=== PATIENT | female | born 1955 | race Caucasian/White ===

== ENCOUNTER → 2020-07-28 15:05 | Outpatient (CLI) | payer MEDICARE, SELFPAY ==
[2020-07-28 15:32] LABS: Basophils # 0.1 K/mm3 (0-0.2); Eosinophils # 0.2 K/mm3 (0.0-0.4); Eosinophils % 2.8 % (0.1-12.0); Hematocrit 49.1 % (37.0-47.0); Hemoglobin 15.6 g/dL (12.2-16.2); Lymphocytes # 2.7 K/mm3 (0.7-4.5); Lymphocytes % 31.5 % (10-50); Mean Corpuscular HGB Conc 31.8 g/dL (31.8-35.4); Mean Corpuscular Volume 97.4 fl (81-99); Mean Platelet Volume 12.8 fl (7.4-10.4); Monocytes # 0.5 K/mm3 (0.1-1.0); Monocytes % 6.2 % (1.7-9.3); Neutrophils # 4.9 K/mm3 (1.8-7.8); Neutrophils % 58.4 % (37.0-80.0); Platelet Count 445 K/mm3 (142-424); Red Blood Count 5.04 M/mm3 (4.20-5.40); Red Cell Distribution Width 14.2 % (11.5-17.5); White Blood Count 8.5 K/mm3 (4.8-10.8)
[2020-07-28 15:48] LABS: Alanine Aminotransferase 20 U/L (12-78); Albumin Level 4.3 g/dl (3.5-5.0); Albumin/Globulin Ratio 1.5 (1.1-1.8); Alkaline Phosphatase 81 U/L (38-126); Aspartate Amino Transferase 31 U/L (14-36); Bilirubin,Total 0.6 mg/dl (0.2-1.3); Blood Urea Nitrogen 17 mg/dl (7-17); Calcium 9.9 mg/dl (8.4-10.2); Carbon Dioxide 30 mmol/L (22.0-30.0); Chloride 102 mmol/L (98-107); Chol/HDL Ratio 3.5 (1-3.5); Cholesterol 172 mg/dl (140-200); Estimated Glomerular Filt Rate 72 ml/min (>60); GFR (African American) 87 ML/MIN (>60); Globulin 2.8 g/dL (1.3-3.2); Glucose 121 mg/dl (74-100); HDL Cholesterol 49 mg/dl (40-60); Sodium 139 mmol/L (136-145); Total Protein,Serum 7.1 g/dl (6.3-8.2); Triglycerides 201 mg/dl (30-150); VLDL Cholesterol 40 mg/dL (0-40)
[2020-07-28 15:59] LABS: Direct LDL Cholesterol 81.24 mg/dL (100-129)
== END ==
PROVIDERS: Visit Provider Family Medicine
DX: I25.10 Atherosclerotic heart disease of native coronary artery without angina pectoris (principal); J44.9 Chronic obstructive pulmonary disease, unspecified; E03.9 Hypothyroidism, unspecified
CPT/HCPCS: 80053; 80061; 84443; 85025

== ENCOUNTER → 2021-05-05 17:34 | Outpatient (CLI) | payer MEDICARE, SELFPAY | PROVIDERS: Visit Provider Family Medicine | DX: N61.1 Abscess of the breast and nipple (principal) | CPT/HCPCS: 87070; 87186; 87205 ==

== ENCOUNTER → 2021-05-18 14:34 | Outpatient (CLI) | payer MEDICARE, SELFPAY ==
--- NOTE | 2021-05-18 14:34 | US_ITS ---
PROCEDURE: MM DIG SCREENING MAMM BI W/CAD Digital Breast Tomosynthesis Included RIGHT BREAST ULTRASOUND COMPLETE CLINICAL INDICATION: screening COMPARISON: MG DIG MAMMO DIAGNOSTIC BARAK from 10/20/2015 MG DIG MAMMO DIAG UNI RIGHT from 04/19/2016 US US BREAST LTD RT from 04/19/2016 MG DIG MAMMO BILAT SCREENING from 01/10/2017 US US BREAST RT COMPLETE from 05/18/2021 TECHNIQUE: Standard CC and MLO images and 3D Tomosynthesis was obtained. R2 CAD reviewed. FINDINGS: There are scattered areas of fibroglandular density Bilateral benign-appearing calcifications are noted. Scattered small nodes are present in the right axilla. A 19 mm oval density is present in the upper aspect of the right breast and may represent an enlarged lymph node as seen on ultrasound.. A new cluster of calcifications are present also in the upper outer aspect of the right breast which are indeterminate. Skin thickening is noted in the right periareolar region. Benign-appearing calcifications are noted in the left breast. Right breast ultrasound: In the 1 o'clock region near the nipple there is a 4 by 3.7 cm area of heterogeneous echogenicity with central decreased echogenicity 1 cm in thickness. This corresponds to patient's palpable abnormality and may be due to residual abscess/inflammatory changes. There is a given history of right breast abscess. 3 cm right axillary node is identified. IMPRESSION: Skin thickening noted in the periareolar region on the right some of which may correspond to the subcutaneous complex area of decreased echogenicity and may represent residual abscess or inflammatory changes. Recommend four-week ultrasound follow-up to confirm resolution. Indeterminate mildly suspicious calcifications upper outer right breast. Stereotactic biopsy suggested. BI-RAD Category: 4 Suspicious Abnormality-Biopsy Considered FOLLOW-UP: BIO Biopsy Recommended Also recommend ultrasound follow-up of the subcutaneous phlegmonous changes in the region of the palpable abnormality. (A letter has been sent to the patient regarding results of the study.) Dictated by: Toby Matt MD 05/27/2021 10:02 Toby Matt MD in [place] 05/27/2021 10:02
== END ==
PROVIDERS: PCP Family Medicine; Visit Provider Surgery
DX: Z12.31 Encounter for screening mammogram for malignant neoplasm of breast (principal); N61.1 Abscess of the breast and nipple
CPT/HCPCS: 76641; 77063; 77067

== ENCOUNTER → 2021-06-08 11:47 | Outpatient (CLI) | payer MEDICARE, SELFPAY ==
--- NOTE | 2021-06-08 12:42 | MM_ITS ---
PROCEDURE: MM STEREOTACTIC LOC RT Mammo clip placement Surgical specimen radiograph CLINICAL INDICATION: breast calcification TECHNIQUE: The patient was given 1 mg of Xanax, Lortab 5 mg, and analgesia and minor sedation. Informed consent time-out procedure was performed. The patient was placed on the stereotactic table and the suspicious calcifications in the right breast was localized in the most appropriate projection. The breast was prepped in the routine manner, with sterile prep and the overlying skin anesthetized. A 3 to 4 mm skin incision was performed and the 9 gauge sorus vacuum-assisted core biopsy needle was advanced to the region of the calcification. Pre- and post fire images were obtained. After adequate positioning relative to the calcifications was ensured, multiple biopsies were obtained in the region of the calcifications specifically. The core biopsies obtained were sent for specimen mammography. After the calcifications were indeed identified on the specimen mammogram, the procedure was terminated. The patient tolerated the procedure well without complications. A tiny titanium nonferromagnetic MicroMark was positioned through the mammotome needle into the biopsy site. Pathology: Focal fibroadenomatoid change with associated microcalcifications. Negative for in situ and invasive malignancy. IMPRESSION: 1. Successful stereotactic vacuum-assisted core biopsy of the breast calcifications. 2. Successful placement of a titanium metal MicroMark. 3. No noted complications. SPECIMEN RADIOGRAPH: The mammographically evident calcifications from the prior study are currently evident within the David dish and within the specimens obtained during mammotome procedure. This is considered an adequate specimen and the procedure was terminated. IMPRESSION: Successful removal of described breast calcifications. BREAST MAMMOGRAM: Compared to the prior study, many of the previous noted calcification have been removed. A small MicroMark clip was inserted into the region of the calcifications in the upper outer right breast. There is evidence of soft tissue changes in the region of the biopsy was soft tissue gas and edema. 4. Adequate placement of the MicroMark clip postbiopsy. 5. Postbiopsy changes within the breast. Dictated by: Toby Matt MD 06/12/2021 12:03 Toby Matt MD in [place] 06/12/2021 12:03
== END ==
PROVIDERS: PCP Family Medicine; Visit Provider Surgery
DX: R92.1 Mammographic calcification found on diagnostic imaging of breast (principal)
CPT/HCPCS: 19081; 76098; 77065; 88305

== ENCOUNTER → 2022-09-20 10:45 | Outpatient (CLI) | payer MEDICARE, SELFPAY ==
[2022-09-20 15:00] LABS: Alanine Aminotransferase 16 U/L (12-78); Albumin Level 4.5 g/dl (3.5-5.0); Albumin/Globulin Ratio 1.6 (1.1-1.8); Alkaline Phosphatase 70 U/L (38-126); Anion Gap 11.7 mEq/L (5-15); Aspartate Amino Transferase 25 U/L (14-36); Bilirubin,Total 0.5 mg/dl (0.2-1.3); Blood Urea Nitrogen 19 mg/dl (7-17); Calcium 9.4 mg/dl (8.4-10.2); Carbon Dioxide 28 mmol/L (22.0-30.0); Chloride 105 mmol/L (98-107); Chol/HDL Ratio 4.4 (1-3.5); Cholesterol 150 mg/dl (140-200); Estimated Glomerular Filt Rate 83 ml/min (>60); GFR (African American) 101 ML/MIN (>60); Globulin 2.9 g/dL (1.3-3.2); Glucose 148 mg/dl (74-100); HDL Cholesterol 34 mg/dl (40-60); Potassium 4.7 mmoL/L (3.5-5.1); Sodium 140 mmol/L (136-145); Total Protein,Serum 7.4 g/dl (6.3-8.2); Triglycerides 161 mg/dl (30-150); VLDL Cholesterol 32 mg/dL (0-40)
[2022-09-20 15:03] LABS: Basophils # 0.1 K/mm3 (0-0.2); Basophils % 0.7 % (0.1-2.0); Eosinophils # 0.2 K/mm3 (0.0-0.4); Eosinophils % 1.9 % (0.1-12.0); Hematocrit 45.7 % (37.0-47.0); Hemoglobin 15.1 g/dL (12.2-16.2); Lymphocytes # 2.9 K/mm3 (0.7-4.5); Lymphocytes % 36.1 % (10-50); Mean Corpuscular Hemoglobin 30.2 pg (27.0-31.2); Mean Corpuscular Volume 91.6 fl (81-99); Mean Platelet Volume 8.2 fl (7.4-10.4); Monocytes # 0.4 K/mm3 (0.1-1.0); Neutrophils # 4.5 K/mm3 (1.8-7.8); Neutrophils % 56.3 % (37.0-80.0); Platelet Count 414 K/mm3 (142-424); Red Cell Distribution Width 14.7 % (11.5-17.5); White Blood Count 7.9 K/mm3 (4.8-10.8)
[2022-09-20 15:30] LABS: Thyroid Stimulating Hormone 2.02 uIU/mL (0.465-4.68)
[2022-09-20 15:33] LABS: Hemoglobin A1C 7.7 % (4.0-6.0)
== END ==
PROVIDERS: PCP Family Medicine; Visit Provider Family Medicine
DX: E11.9 Type 2 diabetes mellitus without complications (principal); I10 Essential (primary) hypertension; G89.29 Other chronic pain; M54.9 Dorsalgia, unspecified; R19.8 Other specified symptoms and signs involving the digestive system and abdomen; E03.9 Hypothyroidism, unspecified; Z79.84 Long term (current) use of oral hypoglycemic drugs
CPT/HCPCS: 80053; 80061; 83036; 84443; 85025

== ENCOUNTER → 2022-10-04 13:12 | Outpatient (CLI) | payer MEDICARE, SELFPAY ==
--- NOTE | 2022-10-04 13:12 | CT_ITS ---
FINAL REPORT TECHNIQUE: Axial imaging of the chest was obtained without contrast. Reformatted images were also obtained and reviewed.This study was performed with techniques to keep radiation doses as low as reasonably achievable, (ALARA). Individualized dose reduction technique using automated exposure control or adjustment of mA and/or kV according to the patient's size were employed. CLINICAL HISTORY: chest pain / tobacco FINDINGS: There are dense coronary artery calcifications. There is no axillary adenopathy. There is no hilar or mediastinal mass or adenopathy. Heart size is normal. There is no pericardial or pleural effusion. Calcified granuloma is seen in the lingula. No suspicious infiltrate or nodule is identified on lung window images. IMPRESSION: No acute process. Reviewed, Interpreted and Dictated by Justino Patino MD Transcribed by Lesley Maciel Authenticated and [facility]
--- NOTE | 2022-10-04 13:12 | CT_ITS ---
FINAL REPORT TECHNIQUE: Axial CT images of the abdomen were obtained without contrast. Coronal reformatted images were also obtained.This study was performed with techniques to keep radiation doses as low as reasonably achievable (ALARA). Individualized dose reduction techniques using automated exposure control or adjustment of mA and/or kV according to the patient''s size were employed. CLINICAL HISTORY: left upper quadrant pain FINDINGS: The liver has an unremarkable appearance, without evidence of mass. The gallbladder appears normal without evidence of gallstones. There is no evidence of biliary ductal dilatation. The pancreas appears normal. The spleen size is within normal limits. There is no evidence of renal stone or hydronephrosis. There is a left adrenal nodule measuring 1.8 cm with a mean attenuation value of 12 Hounsfield units which is indeterminate, favor adenoma. There is no evidence of adenopathy. No abnormal fluid collection is seen. No localized inflammatory processes identified. IMPRESSION: 1.8 cm left adrenal nodule, favor adenoma. This could be further evaluated with adrenal mass protocol CT if clinically indicated. Reviewed, Interpreted and Dictated by Justino Patino MD Transcribed by Lesley Maciel Authenticated and [facility]
== END ==
PROVIDERS: PCP Family Medicine; Visit Provider Family Medicine
DX: R10.12 Left upper quadrant pain (principal); R07.9 Chest pain, unspecified
CPT/HCPCS: 71250; 74150

== ENCOUNTER → 2023-05-23 13:51 | Outpatient (CLI) | payer MEDICARE, SELFPAY ==
[2023-05-23 18:28] LABS: Basophils % 0.4 % (0.1-2.0); Eosinophils # 0.2 K/mm3 (0.0-0.4); Eosinophils % 1.9 % (0.1-12.0); Hematocrit 55.7 % (37.0-47.0); Hemoglobin 17.2 g/dL (12.2-16.2); Lymphocytes # 2.3 K/mm3 (0.7-4.5); Lymphocytes % 28.1 % (10-50); Mean Corpuscular Volume 93.5 fl (81-99); Monocytes # 0.5 K/mm3 (0.1-1.0); Monocytes % 5.7 % (1.7-9.3); Neutrophils # 5.1 K/mm3 (1.8-7.8); Neutrophils % 63.9 % (37.0-80.0); Platelet Count 410 K/mm3 (142-424); Red Blood Count 5.95 M/mm3 (4.20-5.40)
[2023-05-23 18:36] LABS: Alanine Aminotransferase 22 U/L (12-78); Albumin Level 4.9 g/dl (3.5-5.0); Albumin/Globulin Ratio 1.3 (1.1-1.8); Alkaline Phosphatase 93 U/L (38-126); Anion Gap 13.1 mEq/L (5-15); Aspartate Amino Transferase 28 U/L (14-36); Bilirubin,Total 0.5 mg/dl (0.2-1.3); Blood Urea Nitrogen 10 mg/dl (7-17); Calcium 10.4 mg/dl (8.4-10.2); Carbon Dioxide 34 mmol/L (22.0-30.0); Chloride 100 mmol/L (98-107); Chol/HDL Ratio 3.1 (1-3.5); Cholesterol 162 mg/dl (140-200); Estimated Glomerular Filt Rate 83 ml/min (>60); GFR (African American) 100 ML/MIN (>60); Globulin 3.8 g/dL (1.3-3.2); Glucose 133 mg/dl (74-100); HDL Cholesterol 52 mg/dl (40-60); Potassium 4.1 mmoL/L (3.5-5.1); Sodium 143 mmol/L (136-145); Total Protein,Serum 8.7 g/dl (6.3-8.2); Triglycerides 180 mg/dl (30-150); VLDL Cholesterol 36 mg/dL (0-40)
[2023-05-23 18:47] LABS: Direct LDL Cholesterol 69.85 mg/dL (100-129)
[2023-05-23 19:07] LABS: Thyroid Stimulating Hormone 3.55 uIU/mL (0.465-4.68)
== END ==
PROVIDERS: PCP Family Medicine; Visit Provider Family Medicine
DX: R10.9 Unspecified abdominal pain (principal); E03.9 Hypothyroidism, unspecified; M54.9 Dorsalgia, unspecified
CPT/HCPCS: 80053; 80061; 84443; 85025

== ENCOUNTER → 2023-06-20 11:05 | Outpatient (CLI) | payer MEDICARE, SELFPAY ==
--- NOTE | 2023-06-20 11:12 | MR_ITS ---
FINAL REPORT CLINICAL HISTORY: Low back pain/abnormal XR. BILATERAL LEG PAIN COMPARISON: None FINDINGS: Multiplanar MR imaging of the lumbar spine was performed without contrast. On the sagittal T2-weighted images, disc degeneration is seen throughout. There is mild anterolisthesis of L4 on L5. There is no evidence of fracture. There are several vertebral body hemangiomas present. The conus has an unremarkable appearance. T11-12: An annular bulge is present with osteophytes and facet osteoarthropathy. There is moderate right and mild left neural foraminal narrowing. T12-L1: An annular bulge is present with osteophytes and facet osteoarthropathy. There is mild right neural foraminal narrowing. L1-2: An annular bulge is present with osteophytes and facet osteoarthropathy. There is mild right and moderate left neural foraminal narrowing. L2-3: An annular bulge is present with osteophytes and facet osteoarthropathy. There is a left foraminal disc protrusion producing left L3 nerve root impingement and moderate bilateral neural foraminal narrowing. There is moderate canal stenosis with an AP canal diameter of 5 mm. L3-4: An annular bulge is present with osteophytes and facet osteoarthropathy. There is a left foraminal disc protrusion with mild right and moderate left neural foraminal narrowing. There is mild canal stenosis with an AP canal diameter of 7 mm. L4-5: An annular bulge is present with osteophytes and facet osteoarthropathy. There is a left posterolateral disc protrusion with mild right and severe left neural foraminal narrowing. There is left L4 nerve root impingement and mild canal stenosis with an AP canal diameter of 8 mm. L5-S1: An annular bulge is present with osteophytes and facet osteoarthropathy. There is severe right and mild left neural foraminal narrowing, with a right paracentral disc protrusion which produces right S1 nerve root impingement and right lateral recess stenosis. IMPRESSION: Multilevel degenerative disc disease, with moderate canal stenosis at the L2-3 level and multilevel neural foraminal narrowing. Reviewed, Interpreted and Dictated by Ortega Forbes III, MD Transcribed by Shaneka Frederick Authenticated and . [facility]
== END ==
LOC: RAD 11:05
PROVIDERS: PCP Family Medicine; Visit Provider Family Medicine
DX: M54.9 Dorsalgia, unspecified (principal); M54.50 Low back pain, unspecified
CPT/HCPCS: 72148; 76376

== ENCOUNTER 2023-11-28 18:23 | Outpatient (CLI) | payer MEDICARE, SELFPAY ==
[2023-11-28 18:25] LABS: Basophils # 0.1 K/mm3 (0-0.2); Basophils % 0.6 % (0.1-2.0); Eosinophils # 0.2 K/mm3 (0.0-0.4); Eosinophils % 1.9 % (0.1-12.0); Hematocrit 45.7 % (37.0-47.0); Hemoglobin 14.3 g/dL (12.2-16.2); Lymphocytes # 1.9 K/mm3 (0.7-4.5); Lymphocytes % 23.3 % (10-50); Mean Corpuscular HGB Conc 31.3 g/dL (31.8-35.4); Mean Corpuscular Hemoglobin 30.5 pg (27.0-31.2); Mean Corpuscular Volume 97.4 fl (81-99); Mean Platelet Volume 8.7 fl (7.4-10.4); Monocytes # 0.5 K/mm3 (0.1-1.0); Monocytes % 6.6 % (1.7-9.3); Neutrophils # 5.5 K/mm3 (1.8-7.8); Neutrophils % 67.7 % (37.0-80.0); Platelet Count 418 K/mm3 (142-424); White Blood Count 8.1 K/mm3 (4.8-10.8)
[2023-11-28 18:27] LABS: Alanine Aminotransferase 17 U/L (12-78); Albumin Level 3.9 g/dl (3.5-5.0); Albumin/Globulin Ratio 1.4 (1.1-1.8); Alkaline Phosphatase 75 U/L (38-126); Anion Gap 9.5 mEq/L (5-15); Aspartate Amino Transferase 33 U/L (14-36); Bilirubin,Total 0.5 mg/dl (0.2-1.3); Blood Urea Nitrogen 18 mg/dl (7-17); Calcium 9.8 mg/dl (8.4-10.2); Carbon Dioxide 30 mmol/L (22.0-30.0); Chloride 104 mmol/L (98-107); Cholesterol 140 mg/dl (140-200); Estimated Glomerular Filt Rate 71 ml/min (>60); GFR (African American) 86 ML/MIN (>60); Globulin 2.7 g/dL (1.3-3.2); Glucose 150 mg/dl (74-100); HDL Cholesterol 46 mg/dl (40-60); Potassium 4.5 mmoL/L (3.5-5.1); Sodium 139 mmol/L (136-145); Total Protein,Serum 6.6 g/dl (6.3-8.2); Triglycerides 101 mg/dl (30-150); VLDL Cholesterol 20 mg/dL (0-40)
[2023-11-28 18:38] LABS: Direct LDL Cholesterol 73.53 mg/dL (100-129)
[2023-11-28 18:57] LABS: Thyroid Stimulating Hormone 3.73 uIU/mL (0.465-4.68)
[2023-11-28 19:16] LABS: Vitamin B12 679 pg/mL (239-931)
[2023-11-28 19:19] LABS: 25-OH Vitamin D, Total 33.6 ng/mL (30-100)
[2023-11-28 19:53] LABS: Hemoglobin A1C 7.1 % (4.0-6.0)
== END 2023-11-28 23:59 ==
LOC: LAB.DROPOF 18:24
PROVIDERS: PCP Family Medicine; Visit Provider Family Medicine
DX: J44.9 Chronic obstructive pulmonary disease, unspecified (principal); E11.9 Type 2 diabetes mellitus without complications; E07.9 Disorder of thyroid, unspecified; E55.9 Vitamin D deficiency, unspecified; E78.5 Hyperlipidemia, unspecified; Z79.84 Long term (current) use of oral hypoglycemic drugs
CPT/HCPCS: 80053; 80061; 82306; 82607; 83036; 84436; 84443; 85025

== ENCOUNTER 2024-06-18 10:04 | Outpatient (CLI) | payer MEDICARE, SELFPAY ==
[2024-06-18 20:07] LABS: Alanine Aminotransferase 14 U/L (12-78); Albumin Level 3.8 g/dl (3.5-5.0); Albumin/Globulin Ratio 1.4 (1.1-1.8); Alkaline Phosphatase 61 U/L (38-126); Anion Gap 5.6 mEq/L (5-15); Aspartate Amino Transferase 23 U/L (14-36); Bilirubin,Total 0.6 mg/dl (0.2-1.3); Blood Urea Nitrogen 10 mg/dl (7-17); Calcium 9.8 mg/dl (8.4-10.2); Carbon Dioxide 34 mmol/L (22.0-30.0); Chloride 106 mmol/L (98-107); Cholesterol 127 mg/dl (140-200); Estimated Glomerular Filt Rate 83 ml/min (>60); GFR (African American) 100 ML/MIN (>60); Globulin 2.7 g/dL (1.3-3.2); Glucose 117 mg/dl (74-100); HDL Cholesterol 42 mg/dl (40-60); Potassium 4.6 mmoL/L (3.5-5.1); Sodium 141 mmol/L (136-145); Total Protein,Serum 6.5 g/dl (6.3-8.2); Triglycerides 93 mg/dl (30-150); VLDL Cholesterol 19 mg/dL (0-40)
[2024-06-18 20:30] LABS: Direct LDL Cholesterol 61.89 mg/dL (100-129)
[2024-06-18 20:37] LABS: Thyroid Stimulating Hormone 2.31 uIU/mL (0.465-4.68)
[2024-06-18 21:14] LABS: Hemoglobin A1C 6.5 % (4.0-6.0)
== END 2024-06-18 23:59 | disposition home or self-care (01) ==
LOC: LAB.DROPOF 06-19 10:05
PROVIDERS: PCP Family Medicine; Visit Provider Family Medicine
DX: I25.10 Atherosclerotic heart disease of native coronary artery without angina pectoris (principal); I10 Essential (primary) hypertension; E03.9 Hypothyroidism, unspecified; E11.9 Type 2 diabetes mellitus without complications; Z79.84 Long term (current) use of oral hypoglycemic drugs; F17.200 Nicotine dependence, unspecified, uncomplicated
CPT/HCPCS: 80053; 80061; 83036; 84443

== ENCOUNTER 2025-02-25 11:48 | Outpatient (CLI) | payer MEDICARE, SELFPAY ==
[2025-02-25 19:17] LABS: Basophils % 0.3 % (0.1-2.0); Eosinophils # 0.1 Kmm3 (0.0-0.4); Eosinophils % 1.8 % (0.1-12.0); Hematocrit 43.2 % (37.0-47.0); Hemoglobin 13.9 g/dL (12.2-16.2); Immature Granulocytes # 0.02 10^3uL; Immature Granulocytes % 0.3 %; Lymphocytes # 2.9 K/mm3 (0.7-4.5); Lymphocytes % 37.5 % (10-50); Mean Corpuscular HGB Conc 32.2 g/dL (31.8-35.4); Mean Corpuscular Hemoglobin 30.5 pg (27.0-31.2); Mean Corpuscular Volume 94.7 fl (81-99); Mean Platelet Volume 9.4 fl (7.4-10.4); Monocytes # 0.5 K/mm3 (0.1-1.0); Monocytes % 6.5 % (1.7-9.3); Neutrophils # 4.2 K/mm3 (1.8-7.8); Neutrophils % 53.6 % (37.0-80.0); Nucleated Red Blood Cells # 0 10^3/uL; Nucleated Red Blood Cells % 0 %; Platelet Count 379 K/mm3 (142-424); Red Blood Count 4.56 M/mm3 (4.20-5.40); Red Cell Distribution Width 14.7 % (11.5-17.5); Red Cell Distribution Width-SD 51.8 fL; White Blood Count 7.8 K/mm3 (4.8-10.8)
[2025-02-25 19:34] LABS: Microalbumin/Creatinine Ratio 14.5
[2025-02-25 19:44] LABS: Albumin Level 4.3 g/dl (3.5-5.0); Chloride 100 mmol/L (98-107); Potassium 4.3 mmoL/L (3.5-5.1); Sodium 139 mmol/L (136-145)
[2025-02-25 19:46] LABS: Blood Urea Nitrogen 27 mg/dl (7-17); Estimated Glomerular Filt Rate 62 ml/min (>60); GFR (African American) 75 ML/MIN (>60)
[2025-02-25 19:47] LABS: Alanine Aminotransferase 16 U/L (12-78); Albumin/Globulin Ratio 1.5 (1.1-1.8); Alkaline Phosphatase 62 U/L (38-126); Anion Gap 12.3 mEq/L (5-15); Aspartate Amino Transferase 22 U/L (14-36); Bilirubin,Total 0.3 mg/dl (0.2-1.3); Calcium 9.9 mg/dl (8.4-10.2); Carbon Dioxide 31 mmol/L (22.0-30.0); Cholesterol 133 mg/dl (140-200); Globulin 2.8 g/dL (1.3-3.2); Glucose 116 mg/dl (74-100); HDL Cholesterol 44 mg/dl (40-60); Total Protein,Serum 7.1 g/dl (6.3-8.2); Triglycerides 146 mg/dl (30-150); VLDL Cholesterol 29 mg/dL (0-40)
[2025-02-25 19:48] LABS: Creatinine,Urine Random 61 mg/dL (Not Estab.)
[2025-02-25 19:58] LABS: Direct LDL Cholesterol 48.67 mg/dL (100-129)
[2025-02-25 20:14] LABS: Intact Parathyroid Hormone 18.5 pg/mL (7.5-53.5)
[2025-02-25 20:18] LABS: Thyroid Stimulating Hormone 2.13 uIU/mL (0.465-4.68)
[2025-02-25 20:28] LABS: HIV Combo NEGATIVE (Negative)
[2025-02-25 20:48] LABS: Hepatitis C Ab Qual. W/ RFX NEGATIVE (Negative)
[2025-02-25 21:03] LABS: Hemoglobin A1C 7.8 % (4.0-6.0)
--- OUTSIDE RECORDS SUMMARY | 2025-02-27 11:50 | XMS_ITS | Continuity of Care Document ---
Author Organization [place] - [facility] - [place] & [place], [facility] Address [address] [place] [address] Care Team Providers Care Air Cargo Specialist Name Role Phone SHANTHI VERA Primary Care Provider Assessment Encounter Date Assessment Date Assessment LastModified by Organization Details LastModified Time 01/14/2025 01/14/2025 Doing very well. No chest pain pressure or tightness. No shortness of breath. Blood pressure and heart rate have been under good control. She took her blood pressure medicines about a half an hour ago. Normal blood pressure at home. We will continue Plavix. Continue the current medical therapy. She is on lisinopril and metoprolol. Maximal medical therapy. We will see her back in 6 months. Monitor the cardiac symptoms. Meds and chart reviewed in full today. EKG shows normal sinus rhythm with poor R-wave progression but no ST or T-wave changes Patient Education was printed, I have reviewed the Past Medical, Family, and Social Histories along with ROS and all orders in today's record, and have noted any changes. Medications, charts and records reviewed in full today. PLAN: Continue lisinopril and metoprolol. Maximal medical therapy Continue Plavix Continue Lasix at current dose Follow-up in Cardiology Clinic in 6 months Blood work as per primary care Monitor blood pressure and heart rate Continue other current medications. Continue aggressive risk factor modification. Recommend LDL less than 70 Encouraged regular exercise and activity. EKG: today shows normal sinus rhythm poor R-wave progression but no ST or T-wave changes LAST ECHO: 01/10/2023 EJECTION FRACTION 70-75%. MILD LVH. OTHERWISE, NORMAL ECHO LAST ISCHEMIC EVAL: 05/06/14 ISCHEMIA OF A MODERATE PORTION OF THE ANTERIOR AND APICAL [place] ON MYOCARDIAL PERFUSION. ABNORMAL EXERCISE EKG. MODERATE REDUCTION FUNCTIONAL CAPACITY. NORMAL LV SF. LAST HEART CATH: 12/19/2017 [facility]. LVEDP 10. SEVERE TWO-VESSEL [place] CORONARY ARTERY DISEASE SUBTOTAL OCCLUSION AND FRESH RUPTURED PLAQUE IN THE MID / DISTAL RCA WELL SEVERE IN-STENT STENOSIS OF THE MID LAD. MILD DIFFUSE CORONARY CALCIFICATION. SUCCESSFUL ANGIOPLASTY OF THE OSTIAL 1ST DIAGONAL BRANCH OF THE LAD. SUCCESSFUL ANGIOPLASTY AND STENTING OF THE PROXIMAL / MID AND MID LEFT ANTERIOR DESCENDING AND THE MID AND MID DISTAL LARGE AND DOMINANT RCA. LAST LDL: 01/10/2023- 153 PAST [facility]: 02/23/2016 ARCENIO Foreman LPN, I AM SCRIBING FOR, AND IN THE OFFICE/PRESENC E OF, KERRI RANGEL MD. KERRI Foreman M.D. PERFORMED THE SERVICES DESCRIBED IN THIS DOCUMENTATION, SCRIBED BY ARCENIO CHAUDHRY LPN IN MY PRESENCE, AND IT IS BOTH ACCURATE AND COMPLETE. [email or web address] Not available 01/14/2025 09:54:59 Plan of Treatment Reminders Order Date Submit Date Provider Last Modified By Organization Details Last Modified Time Details Appointments OV EST 30 2024 09:00A Sheyla Rangel MD Not available Not available Not available Lab None recorded. Referral None recorded. Procedures None recorded. Surgeries None recorded. Imaging electroca rdiogram 2024 025 mango [facility], [address] [place] [address] [address], [place], [address], 01/14/2025 09:55:15 Medication Orders None recorded. Patient TargetsNo targets recorded. Patient InstructionsNo instructions recorded. Reason for Referral None Reported. Results Created Date Observation Date Name Description Value Unit Range Abnormal Flag Note LastModifiedBy Organization Detail LastModifiedTime 01/15/20 25 kevin decker am No observ ation record ed. FACUNDO Norman [address], [place], [address], 01/14/2025 08:55:11 01/15/20 25 01/14/2025 elect shirley decker am No observ ation record ed. [email or web address] Not Available 2024 12:18:26 Result Notes None recorded. Problems Name Problem SNOMED Code Status Onset Date Resolution Date Notes Provider Name and Address Organization Details Recorded Time Transient cerebral ischemia 083102696 Active 2023 Kerri Rangel MD [facility], [place], [address], [place] [facility] [place] 4 14:15:25 Hyperlipidemia 97386390 Active 2022 Kerri Rangel MD [facility],[address], [place], [address], [place] [facility] [place] & [place] 3 10:07:54 Near syncope 641589221 Active 2022 Kerri Rangel MD [facility],[address], [place], [address], [place] [facility] [place] & [place] 3 10:07:58 Coronary arterioscleros is 82614561 Active 2022 Kerri Rangel MD [address] [place] [address],[address], [place], [address], [place] [facility] [place] & [place] 3 10:08:03 Essential hypertension 41798908 Active 2022 Kerri Rangel MD [facility],[address], [place], [address], [place] [facility] [place] & [place] 3 10:08:06 Diastolic dysfunction 3775347 Active 2022 Kerri Rangel MD [address] [place] [address],[address], [place], [address], [place] [facility] [place] 3 10:08:11 Type 2 diabetes mellitus without complication 109210444 Active 2022 Kerri Rangel MD [address] [place] [address],[address], [place], [address], [place] - [facility] [place] & [place] 13:23:44 Problem Notes None recorded. Procedures Surgical History Date Name Laterality Status Provider Name and Address Organization Details Recorded Time 12/20/19 18 Cardiac Catheterization completed Syl Menendez [place] - [facility] - [place] & [place] 02/17/2023 15:54:24 02/23/20 16 Cardiac Catheterization completed Syl BAHENA - [facility] - [place] 02/17/2023 16:00:58 08/29/19 15 Hip Surgery completed Elvia Aldana SHRUT[place] - [facility] - [place] 12/27/2022 11:15:58 05/27/20 14 Cardiac Catheterization completed Syl BAHENA - [facility] - [place] & [place] 02/17/2023 16:01:50 02/24/20 10 Cardiac Catheterization completed Syl BAHENA - [facility] - [place] & [place] 02/17/2023 16:02:31 01/15/20 09 Cardiac Catheterization completed Syl Pinedaes [place] - [facility] - [place] & [place] 02/17/2023 16:03:12 Imaging Results None recorded. Procedure Notes None recorded. Medical Equipment None Reported. Allergies No known drug allergies Medications Name Sig Start Date Stop Date Status Note LastModified by Organization Details LastModified Time atorvastati n 40 mg tablet TAKE 1 TABLET BY MOUTH ONCE DAILY active Not Available Not Available No t Available metformin 500 mg tablet TAKE 1 TABLET BY MOUTH TWICE DAILY active Not Available Not Available No t Available potassium chloride ER 10 mEq capsule,ext ended release TAKE 1 CAPSULE BY MOUTH ONCE DAILY active Not Available Not Available No t Available albuterol sulfate 2.5 mg/3 mL (0.083 %) solution for nebulizatio n INHALE THREE (3) ML FOUR (4) TIMES A DAY BY NEBULIZAT ION ROUTE NEEDED active Not Available Not Available No t Available azithromyci n 250 mg tablet TAKE TWO (2) TABLETS (500 MG) BY ORAL ROUTE ONCE DAILY FOR ONE (1) DAY THEN ONE (1) TABLET (250 MG) BY ORAL ROUTE ONCE DAILY FOR FOUR (4) DAYS 12/27 completed Not Available Not Available Not Available benzonatate 200 mg capsule TAKE 1 CAPSULE BY MOUTH THREE TIMES DAILY NEEDED FOR COUGH 02/26 completed Not Available Not Available Not Available metoprolol succinate ER 50 mg tablet,exte nded release 24 hr TAKE 1 TABLET BY MOUTH ONCE DAILY active Not Available Not Available No t Available prednisone 20 mg tablet TAKE THREE (3) TABLETS BY MOUTH FOR THREE (3) DAYS, TWO (2) TABLETS FOR THREE (3) DAYS THEN ONE (1) TABLET FOR THREE (3) DAYS 02/21 completed Not Available Not Available Not Available promethazin e 6.25 mg-codeine 10 mg/5 mL syrup TAKE FIVE (5) ML FOUR (4) TIMES A DAY BY ORAL ROUTE NEEDED FOR 7 DAYS. 10/17 completed Not Available Not Available Not Available clopidogrel 75 mg tablet TAKE 1 TABLET BY MOUTH ONCE DAILY active Not Available Not Available No t Available tramadol 50 mg tablet TAKE 1 TABLET BY MOUTH THREE TIMES DAILY NEEDED FOR PAIN 07/04 completed Not Available Not Available Not Available calcium 600 mg (as calcium carbonate 1,500 mg) tablet TAKE 1 TABLET BY MOUTH ONCE DAILY FOR 14 DAYS active Not Available Not Available No t Available pravastatin 80 mg tablet TAKE 1 TABLET BY MOUTH ONCE DAILY 07/09 completed Not Available Not Available Not Available levothyroxi ne 50 mcg tablet TAKE 1 TABLET BY MOUTH ONCE DAILY active Not Available Not Available No t Available pantoprazol e 40 mg tablet,autumn yed release TAKE 1 TABLET BY MOUTH ONCE DAILY active Not Available Not Available No t Available gabapentin 300 mg capsule TAKE 1 CAPSULE BY MOUTH THREE TIMES DAILY NEEDED FOR PAIN active Not Available Not Available No t Available furosemide 20 mg tablet TAKE 1 TABLET BY MOUTH TWICE DAILY NEEDED FOR EDEMA active Not Available Not Available No t Available methylpredn isolone 4 mg tablets in a dose pack TAKE BY MOUTH DIRECTED ON INSIDE OF PACKAGE 02/26 completed Not Available Not Available Not Available albuterol sulfate HFA 90 mcg/actuati on aerosol inhaler INHALE 2 PUFFS BY MOUTH EVERY 4 TO 6 HOURS NEEDED FOR SHORTNESS OF BREATH FOR WHEEZING active Not Available Not Available No t Available lisinopril 40 mg tablet TAKE 1 TABLET BY MOUTH ONCE DAILY active Not Available Not Available No t Available Mucinex 600 mg tablet, extended release TAKE ONE (1) TABLET EVERY 12 HOURS BY ORAL ROUTE FOR 7 DAYS. 07/04 completed Not Available Not Available Not Available duloxetine 30 mg capsule,del ayed release TAKE 1 CAPSULE BY MOUTH ONCE DAILY active Not Available Not Available No t Available metformin 02/21 completed Not Available Not Available Not Available Vitals Date Recorded Body height Body mass index (BMI) Body weight Oxygen saturation Oxygen saturation in Arterial blood by Pulse oximetry Heart rate Systolic blood pressure Diastolic blood pressure Provider Name and Address Organization Details Last Updated DateTime 5 152.4 cm 26.4 kg/m2 98183.4 1 g 90 % 90 % 70 /min 142 mm[Hg] 78 mm[Hg] Yue Elaine [facility] & [place] 5 08:46:49 Social History Question Answer Notes LastModified by [place] Details LastModified Time Tobacco Smoking Status Current Every Day Smoker Elvia Aldana [facility], [facility] & [place] 12/27/2022 11:15:58 What Is Your Level Of Caffeine Consumption? Occasional [email or web address] Information not available 07/09/2024 What Type Of Diet Are You Following? REGULAR [email or web address] Information not available 07/09/2024 What Was The Date Of Your Most Recent Tobacco Screening? 12/27/2022 [email or web address] Information not available 12/27/2022 Are You Passively Exposed To Smoke? No [email or web address] Information not available 12/27/2022 How Much Tobacco Do You Smoke? 1 PPD [email or web address] Information not available 12/27/2022 How Many Years Have You Smoked Tobacco? 30 [email or web address] Information not available 12/27/2022 Sex: Female Functional Status Question Answer Note LastModified by Plum Baby[employer]at ion Details LastModified Time Do you use any illicit or recreational drugs? No [email or web address] Information not available 12/27/2022 Do you or have you ever used any other forms of tobacco or nicotine? No [email or web address] Information not available 07/09/2024 What is your level of alcohol consumption? None [email or web address] Information not available 12/27/2022 What is your exercise level? Occasional [email or web address] Information not available 12/27/2022 Mental Status None recorded. Family History Nothing Reported. Medical History Condition Response Diabetes Y Thyroid Disease Y Low Blood Pressure Y Hypertension Y Dizziness or Fainting Y High Cholesterol Y Gynecological HistoryNo gynecological history recorded. Obstetrics History GPAL:G 0 P 0 0 0 0 Past Encounters Encounter ID Performer Location Encounter Start Date Encounter Closed Date Diagnosis/Indication Diagnosis SNOMED-CT Code Diagnosis ICD10 Code Diagnosis Note [id number] Kerri Rangel MD [address] [place] [address] 01/14/2025 08:36:03 01/14/2025 09:07:52 Essential hypertension 77231542 I10 Coronary arteriosclerosis 18778048 I25.10 Diastolic dysfunction 35 54533 I51.9 Hyperlipidemia 21392981 E78.5 Type 2 page betes mellitus without complication 198634815 E11.9 Transient cerebral ischemia 552616159 G45.9 no further episodes Health Concerns Section Related Observation LastModified by Organization Detai ls LastModified Time None Recorded Concern Status LastModified by Organization Details LastModified Time None Recorded Payers Encounter Date Sequence Insurance Name Policy Number Policy Joy Covered Member ID Joy Member ID Guarantor Name 01/14/2025 1 [place]MEDICARE REPLACEMENT HMO) [id number] Eun Greer [id number] Eun Greer Notes Date Note Type Note Provider Name and Address Organization Details Recorded Time 01/14/2025 text/html doing well. Here for six-month follow-up. She did not get her echocardiogram and carotid but has not had any further symptoms. No chest pain pressure or tightness. No shortness of breath. No further TIA like symptoms. Kerri Rangel MD [address] [place] [address],[address], [place], [address], [facility] - [place] - [place] & [place] 01/14/2025 09:55:19 OBGyn Episode No OBEpisode recorded.
--- OUTSIDE RECORDS SUMMARY | 2025-02-27 11:50 | XMS_ITS | Data Portability ---
Author Organization [facility] Address [address] [place] [address] Assessment Encounter Date Assessment Date Assessment LastModified by Organization Details LastModified Time 10/26/2017 10/26/2017 Patient has been to urgent care twice. Refractory bronchitis Rx Omnicef 300 mg 1 po bid x 10 days Depo Medrol 120 mg IM Stents x 6 Referral to No nitroglycerin use s/p total hip replacement [email or web address] Not available 10/26/2017 13:51:47 12/17/2024 12/17/2024 Will call with lab results when available. Call office with questions or concerns. f/u 2 weeks for Medicare AWE Not available 12/17/2024 16:56:32 Plan of Treatment Reminders Order Date Submit Date Provider Last Modified By Organization Details Last Modified Time Details Appointments None recorded. Lab HbA1c (hemoglobin A1c), blood 2024 025 [email or web address] [facility], [address] [place], [address], 5 16:55:22 TSH + free T4, serum 2024 025 FAC[place]DO [facility], [address], [place] F, [place], [address], 5 12:40:38 CMP, serum or plasma 2024 025 [place] [facility], [address], [place], [place], [address], 5 12:40:39 CBC w/ auto diff 2024 025 [place] [facility], [address], [place] F, [place], [address], 5 12:40:38 cobalamin and folate panel, serum 2024 025 [place] [facility], [address], [place] F, [place], [address], 5 12:40:40 vitamin D, 25-hydroxy, total, serum 2024 025 [place] [facility], [address], [place] F, [place], [address], 5 12:40:40 iron + TIBC + ferritin, serum 2024 025 [place] [facility], [address], [place], [place], [address], 5 12:40:37 rapid flu (A+B) [address], [address] [place], [address], 3 11:53:37 rapid SARS CoV + SARS CoV 2 Ag, QL IA, respiratory specimen [address], [address] [place], [address], 3 11:53:37 HbA1c (hemoglobin A1c), blood [address], [address] [place], [address], 3 14:09:04 glucose, fingerstick , blood 2022 023 [facility], [address] [place], [place] [address] [place], [address], 3 14:09:04 Referral cardiologis t referral - please schedule as soon as possible 2017 018 [email or web address] Jose Luis Saleem MD, [address] [place] [address] , [address], [address], 8 09:58:48 Procedures nebulizer treatment (PROC) 2022 023 Not available 3 15:14:44 Surgeries None recorded. Imaging XR, chest, 2 view 2017 018 [facility], [address] [place] [address] [address] [place], [address], 8 11:40:37 electrocard iogram 2017 018 [facility], [address] [place] [address] [address] [place], [address], 8 12:29:01 Medication Orders Solu-Medrol (PF) 125 mg/2 mL solution for injection 2022 023 [email or web address] Not available 5 16:48:39 ceftriaxone 1 gram solution for injection 2022 023 [email or web address] Not available 5 16:49:15 albuterol sulfate HFA 90 mcg/actuati on aerosol inhaler 2022 023 [facility], [address] [place] [address], [place], [address], 3 15:20:25 promethazin e 6.25 mg-codeine 10 mg/5 mL syrup [email or web address] [facility], [address] [place] [address], [place], [address], 5 16:48:46 prednisone 20 mg tablet [address] [facility], [address] [place] [address], [address], 3 15:11:19 ceftriaxone 1 gram solution for injection 2022 023 [email or web address] Not available 5 16:49:15 guaifenesin ER 600 mg tablet, extended release 12 hr [address] [facility], [address] [place] [address], [address], 3 09:15:30 Zithromax Z-Royal 250 mg tablet [address], [address] [place] [address], [address], 3 09:13:06 albuterol sulfate 2.5 mg/3 mL (0.083 %) solution for nebulizatio n [address] [facility], [address] [place] [address], [address], 3 14:06:31 Depo-Medrol 80 mg/mL suspension for injection 2022 023 [email or web address] Not available 3 09:13:35 Depo-Medrol 80 mg/mL suspension for injection [address] [facility], [address] [place], [address], 3 09:13:35 cefdinir 300 mg capsule 2017 018 [email or web address] [facility], [address] [place], [address], 13:40:26 Nitrostat 0.4 mg sublingual tablet 2017 018 [facility]us [facility], [address] [place], [address], 19:13:00 Patient TargetsNo targets recorded. Patient Instructions Encounter Date Encounter Id Patient Instructions Last Modified By Organization Details Last Modified Time 10/26/2017 [id number] Quitting Tobacco : Care Instructions [email or web address] Not available 10/26/2017 19:13:00 bronchitis: care instructions sneus Not available 10/26/2017 11:40:37 chronic obstructive pulmonary disease (COPD): care instructions [email or web address] Not available 10/26/2017 11:40:37 learning about copd and how to prevent lung infections sneus Not available 10/26/2017 11:40:37 A healthy lifestyle: care instructions sneus Not available 10/26/2017 11:40:37 12/06/2022 [id number] high blood pressure: care instructions Not available 12/06/2022 14:08:23 learning about high blood pressure Not available 12/06/2022 14:08:23 chronic obstructive pulmonary disease (COPD): care instructions Not available 12/06/2022 14:08:23 learning about copd and how to prevent lung infections Not available 12/06/2022 14:08:23 keep well hydrated, take medication as prescribed, medications discussed with pt and side effects and adverse effects were discussed, RTC prn Not available 12/06/2022 14:07:09 01/17/2023 [id number] body mass index: care instructions Not available 01/17/2023 09:32:38 learning about healthy weight [email or web address] Not available 01/17/2023 09:32:39 12/17/2024 [id number] diarrhea: care instructions [email or web address] Not available 12/17/2024 17:34:25 body mass index: care instructions [email or web address] Not available 12/17/2024 16:55:22 learning about healthy weight [email or web address] Not available 12/17/2024 16:55:22 Reason for Referral Hyperbaric Technologist Referral for Ch est discomfort please schedule as soon as possible Referring Physician: Todd Kiran, Family Medicine, Encounter Date: 10/26/2017 Results Created Date Observation Date Name Description Value Unit Range Abnormal Flag Note LastModifiedBy Organization Detail LastModifiedTime 10/26/19 18 10/26/2017 elect rocya diogr am Rate & Rhythm normal normal Not Available [address] [place], [address], 10/26/2017 09:46:49 10/26/19 18 10/26/2017 elect rocya diogr am Interpretati on border line r axis deviat ion qrs axis >901 Not Available [address] [place], [address], 10/26/2017 09:46:49 12/07/19 23 12/06/2022 gluco se, finge rstic k, blood Blood Glucose: mg/dl 167 Not Available [address] [place], [address], 12/06/2022 14:00:56 12/07/19 23 12/06/2022 HbA1c (hemo globi n A1c), blood HbA1C 7.3 % Not Available [address] [place], [address], 12/06/2022 14:00:38 07/18/20 23 07/18/2023 rapid SARS CoV + SARS CoV 2 Ag, QL IA, respi rator y speci men SARS CoV antigen Negati ve Not Available [address] [place], [address], 07/18/2023 15:14:22 07/18/20 23 07/18/2023 rapid flu (A+B) Flu negati ve Not Available [facility] [address] [place], [address], 07/18/2023 15:14:21 07/18/20 23 07/18/2023 rapid flu (A+B) Type Both A & B Not Available [facility] [address] [place], [address], 07/18/2023 15:14:21 12/18/19 25 12/17/2024 HbA1c (hemo globi n A1c), blood HbA1C 6.8 % Not Available [facility] [address] [facility] [address] [place], [address], 12/17/2024 16:35:04 12/19/19 25 12/18/2024 FE+TI BC+FE R iron bind.cap.(TI BC) 334 ug/dL 250-45 0 normal Not Available [facility] ([facility]) [address] [place], [address], 12/18/2024 12:40:37 12/19/19 25 12/18/2024 FE+TI BC+FE R UIBC 267 ug/dL 118-36 9 normal Not Available [facility] ([facility]) [address] [place], [address], 12/18/2024 12:40:37 12/19/19 25 12/18/2024 FE+TI BC+FE R iron 67 ug/dL 27-139 normal Not Available [facility] ([facility]) [address] [place], [address], 12/18/2024 12:40:37 12/19/19 25 12/18/2024 FE+TI BC+FE R iron saturation 20 % 15-55 normal Not Available [facility] ([facility]) [address] [place], [address], 12/18/2024 12:40:37 12/19/19 25 12/18/2024 FE+TI BC+FE R ferritin 154 NG/mL 15-150 above high normal Not Available [facility] ([facility]) [address] [place], [address], 12/18/2024 12:40:37 12/19/19 25 12/18/2024 TSH+F REE T4 TSH 2.270 uIU/m L 0.450- 4.500 normal Not Available [facility] ([facility]) [address] [place], [address], 12/18/2024 12:40:38 12/19/19 25 12/18/2024 TSH+F REE T4 T4,free(dire ct) 1.62 NG/dL 0.82-1 .77 normal Not Available [facility] ([facility]) [address] [place], [address], 12/18/2024 12:40:38 12/19/19 25 12/18/2024 CBC WITH DIFFE RENTI AL/PL ATELE T WBC 10.4 x10e3 /uL 3.4-10 .8 normal Not Available [facility] ([facility]) [address] [place], [address], 12/18/2024 12:40:38 12/19/19 25 12/18/2024 CBC WITH DIFFE RENTI AL/PL ATELE T RBC 5.20 x10e6 /uL 3.77-5 .28 normal Not Available [facility] ([facility]) [address] [place], [address], 12/18/2024 12:40:38 12/19/19 25 12/18/2024 CBC WITH DIFFE RENTI AL/PL ATELE T hemoglobin 15.4 g/dL 11.1-1 5.9 normal Not Available [facility] ([facility]) [address] [place], [address], 12/18/2024 12:40:38 12/19/19 25 12/18/2024 CBC WITH DIFFE RENTI AL/PL ATELE T hematocrit 47.6 % 34.0-4 6.6 above high normal Not Available [facility] ([facility]) [address] [place], [address], 12/18/2024 12:40:38 12/19/19 25 12/18/2024 CBC WITH DIFFE RENTI AL/PL ATELE T MCV 92 fL 79-97 normal Not Available [facility] ([facility]) [address] [place], [address], 12/18/2024 12:40:38 12/19/19 25 12/18/2024 CBC WITH DIFFE RENTI AL/PL ATELE T MCH 29.6 pg 26.6-3 3.0 normal Not Available [facility] ([facility]) [address] [place], [address], 12/18/2024 12:40:38 12/19/19 25 12/18/2024 CBC WITH DIFFE RENTI AL/PL ATELE T MCHC 32.4 g/dL 31.5-3 5.7 normal Not Available [facility] ([facility]) [address] [place], [address], 12/18/2024 12:40:38 12/19/19 25 12/18/2024 CBC WITH DIFFE RENTI AL/PL ATELE T RDW 13.0 % 11.7-1 5.4 Not Available [facility] ([facility]) [address] [place], [address], 12/18/2024 12:40:38 12/19/19 25 12/18/2024 CBC WITH DIFFE RENTI AL/PL ATELE T platelets 365 x10e3 /uL 150-45 0 normal Not Available [facility] ([facility]) [address] [place], [address], 12/18/2024 12:40:38 12/19/19 25 12/18/2024 CBC WITH DIFFE RENTI AL/PL ATELE T neutrophils 61 % not estab. normal Not Available [facility] ([facility]) [address] [facility], [place], [address], 12/18/2024 12:40:38 12/19/19 25 12/18/2024 CBC WITH DIFFE RENTI AL/PL ATELE T lymphs 31 % not estab. normal Not Available [facility] ([facility]) [address] [facility], [place], [address], 12/18/2024 12:40:38 12/19/19 25 12/18/2024 CBC WITH DIFFE RENTI AL/PL ATELE T monocytes 6 % not estab. normal Not Available [facility] ([facility]) [address] [facility], [place], [address], 12/18/2024 12:40:38 12/19/19 25 12/18/2024 CBC WITH DIFFE RENTI AL/PL ATELE T eos 2 % not estab. normal Not Available [facility] ([facility]) [address] [facility], [place], [address], 12/18/2024 12:40:38 12/19/19 25 12/18/2024 CBC WITH DIFFE RENTI AL/PL ATELE T basos 0 % not estab. normal Not Available [facility] ([facility]) [address] [facility], [place], [address], 12/18/2024 12:40:38 12/19/19 25 12/18/2024 CBC WITH DIFFE RENTI AL/PL ATELE T immature cells REHAB SPEC Not Available [facility] ([facility]) [address] [place], [address], 12/18/2024 12:40:38 12/19/19 25 12/18/2024 CBC WITH DIFFE RENTI AL/PL ATELE T neutrophils (absolute) 6.3 x10e3 /uL 1.4-7. 0 normal Not Available [facility] ([facility]) [address] [place], [address], 12/18/2024 12:40:38 12/19/19 25 12/18/2024 CBC WITH DIFFE RENTI AL/PL ATELE T lymphs (absolute) 3.2 x10e3 /uL 0.7-3. 1 above high normal Not Available [facility] ([facility]) [address] [place], [address], 12/18/2024 12:40:38 12/19/19 25 12/18/2024 CBC WITH DIFFE RENTI AL/PL ATELE T monocytes(ab solute) 0.6 x10e3 /uL 0.1-0. 9 normal Not Available [facility] ([facility]) [address] [place], [address], 12/18/2024 12:40:38 12/19/19 25 12/18/2024 CBC WITH DIFFE RENTI AL/PL ATELE T eos (absolute) 0.2 x10e3 /uL 0.0-0. 4 normal Not Available [facility] ([facility]) [address] [place], [address], 12/18/2024 12:40:38 12/19/19 25 12/18/2024 CBC WITH DIFFE RENTI AL/PL ATELE T baso (absolute) 0.0 x10e3 /uL 0.0-0. 2 normal Not Available [facility] ([facility]) [address] [place], [address], 12/18/2024 12:40:38 12/19/19 25 12/18/2024 CBC WITH DIFFE RENTI AL/PL ATELE T immature granulocytes 0 % not estab. Not Available [facility] ([facility]) [address] [place], [address], 12/18/2024 12:40:38 12/19/19 25 12/18/2024 CBC WITH DIFFE RENTI AL/PL ATELE T immature grans (abs) 0.0 x10e3 /uL 0.0-0. 1 Not Available [facility] ([facility]) [address] [facility], [place], [address], 12/18/2024 12:40:38 12/19/19 25 12/18/2024 CBC WITH DIFFE RENTI AL/PL ATELE T NRBC REHAB SPEC Not Available [facility] ([facility]) [address] [facility], [place], [address], 12/18/2024 12:40:38 12/19/19 25 12/18/2024 CBC WITH DIFFE RENTI AL/PL ATELE T hematology comments: REHAB SPEC Not Available [facility] ([facility]) [address] [facility], [place], [address], 12/18/2024 12:40:38 12/19/19 25 12/18/2024 COMP. METAB OLIC PANEL (14) glucose 110 mg/dL 70-99 above high normal Not Available [facility] ([facility]) [address] [facility], [place], [address], 12/18/2024 12:40:39 12/19/19 25 12/18/2024 COMP. METAB OLIC PANEL (14) BUN 9 mg/dL 8-27 normal Not Available [facility] ([facility]) [address] [facility], [place], [address], 12/18/2024 12:40:39 12/19/19 25 12/18/2024 COMP. METAB OLIC PANEL (14) creatinine 0.66 mg/dL 0.57-1 .00 normal Not Available [facility] ([facility]) [address] [facility], [place], [address], 12/18/2024 12:40:39 12/19/19 25 12/18/2024 COMP. METAB OLIC PANEL (14) eGFR 94 mL/mi n/1.7 3 >59 normal Not Available [facility] ([facility]) [address] [facility] [place], [address], 12/18/2024 12:40:39 12/19/19 25 12/18/2024 COMP. METAB OLIC PANEL (14) BUN/creatini ne ratio 14 12-28 normal Not Available [facility] ([facility]) [address] [facility] [place], [address], 12/18/2024 12:40:39 12/19/19 25 12/18/2024 COMP. METAB OLIC PANEL (14) sodium 143 mmol/ L 134-14 4 normal Not Available [facility] ([facility]) [address] [facility], [place], [address], 12/18/2024 12:40:39 12/19/19 25 12/18/2024 COMP. METAB OLIC PANEL (14) potassium 3.8 mmol/ L 3.5-5. 2 normal Not Available [facility] ([facility]) [address] [facility] [place], [address], 12/18/2024 12:40:39 12/19/19 25 12/18/2024 COMP. METAB OLIC PANEL (14) chloride 98 mmol/ L 96-106 normal Not Available [facility] ([facility]) [address] [facility] [place], [address], 12/18/2024 12:40:39 12/19/19 25 12/18/2024 COMP. METAB OLIC PANEL (14) carbon dioxide, total 28 mmol/ L 20-29 normal Not Available [facility] ([facility]) [address] [facility] [place], [address], 12/18/2024 12:40:39 12/19/19 25 12/18/2024 COMP. METAB OLIC PANEL (14) calcium 7.9 mg/dL 8.7-10 .3 below low normal Not Available [facility] ([facility]) [address] [place], [address], 12/18/2024 12:40:39 12/19/19 25 12/18/2024 COMP. METAB OLIC PANEL (14) protein, total 7.2 g/dL 6.0-8. 5 normal Not Available [facility] ([facility]) [address] [place], [address], 12/18/2024 12:40:39 12/19/19 25 12/18/2024 COMP. METAB OLIC PANEL (14) albumin 4.3 g/dL 3.9-4. 9 normal Not Available [facility] ([facility]) [address] [facility] [place], [address], 12/18/2024 12:40:39 12/19/19 25 12/18/2024 COMP. METAB OLIC PANEL (14) globulin, total 2.9 g/dL 1.5-4. 5 Not Available [facility] ([facility]) [address] [place], [address], 12/18/2024 12:40:39 12/19/19 25 12/18/2024 COMP. METAB OLIC PANEL (14) bilirubin, total 0.5 mg/dL 0.0-1. 2 normal Not Available [facility] ([facility]) [address] [facility] [place], [address], 12/18/2024 12:40:39 12/19/19 25 12/18/2024 COMP. METAB OLIC PANEL (14) alkaline phosphatase 59 IU/L 44-121 normal Not Available [facility] ([facility]) [address] [facility] [place], [address], 12/18/2024 12:40:39 12/19/19 25 12/18/2024 COMP. METAB OLIC PANEL (14) AST (SGOT) 19 IU/L 0-40 normal Not Available [facility] ([facility]) [address] [facility], [place], [address], 12/18/2024 12:40:39 12/19/19 25 12/18/2024 COMP. METAB OLIC PANEL (14) ALT (SGPT) 11 IU/L 0-32 normal Not Available [facility] ([facility]) [address] [facility], [place], [address], 12/18/2024 12:40:39 12/19/19 25 12/18/2024 VITAM IN B12 AND FOLAT E vitamin B12 460 pg/mL 232-12 45 normal Not Available [facility] ([facility]) [address] [facility], [place], [address], 12/18/2024 12:40:40 12/19/19 25 12/18/2024 VITAM IN B12 AND FOLAT E folate (folic acid), serum 19.7 NG/mL >3.0 normal A serum folat e esteban ntrat ion of less than 3.1 ng/mL is consi dered to repre sent clini paola defic iency . Not Available [facility] ([facility]) [address] [facility], [place], [address], 12/18/2024 12:40:40 12/19/19 25 12/18/2024 VITAM IN D, 25-HY DROXY vitamin D, 25-hydroxy 42.8 NG/mL 30.0-1 00.0 Vitam in D defic iency has been defin ed by the Insti tute of Medic ine and an Endoc rine Socie ty pract ice guide line as a level of serum 25-OH vitam in D less than 20 ng/mL (1,2) . The Endoc rine Socie ty went on to furth er defin e vitam in D insuf ficie ncy as a level betwe en 21 and 29 ng/mL (2). 1. IOM (Inst itute of Medic ine). 2010. Dieta ry refer ence oneal es for calci um and D. Chastity noonan [place]: The Natio nal [facility] Press . 2. Kim TOMLIN, James de leon [place], Willie off-F suresh i OLIVEROS, et al. Evalu ation , treat ment, and preve ntion of vitam in D defic iency : an Endoc rine Socie ty clini paola pract ice guide line. JCEM. 2010; 96(7) :1911 -30. Not Available [facility] ([facility]) [address] [facility], [place], [address], 12/18/2024 12:40:40 12/19/19 25 12/18/2024 PLECURTIS E NOTE please note Commen t The date and/o r time of colle ction was not indic ated on the requi sitio n as requi red by state and timo al law. The date of recei pt of the speci men was used as the colle ction date if not suppl ied. Not Available [facility] ([facility]) [address] [facility], [place], [address], 12/18/2024 12:40:41 10/26/19 18 10/26/2017 XR, chest , 2 view No observ ation record ed. [facility] [address] [place], [address], 10/26/2017 11:05:26 11/11/19 18 10/26/2017 elect shirley decker am No observ ation record ed. [facility] [address] [place], [address], 11/10/2017 13:19:46 Result Notes None recorded. Problems Name Problem SNOMED Code Status Onset Date Resolution Date Notes Provider Name and Address Organization Details Recorded Time Nicotine dependence 06390202 Active 2017 Gabriella Carlalamar [place], [place] - [facility] 8 09:49:47 Intermitten t tremor 19919308 Active 2024 Helena Oglesby, COSMETICIAN [address], [place], [address], [facility] - [facility] 5 16:55:00 Fatigue 35592911 Active 2024 Helena Oglesby, COSMETICIAN [address], [place], [address], [place] - [facility] 5 16:55:02 Diarrhea 59733422 Active 2024 Helena Oglesby, COSMETICIAN [address], [place], [address], [place] - [facility] 5 16:55:05 Hypocalcemi a 6997327 Active 2024 Helena Oglesby, COSMETICIAN [address], [place], [address], [place] - [facility] 5 13:10:41 Renewal of prescriptio n Completed 201610/26/2017 Emmie Lorenzo in [place], [place] - [facility] 8 10:51:38 Well controlled type 2 diabetes mellitus 513563311 Active 2016 Crystal Carla [place], [place] - [facility] 8 09:49:47 Mixed hyperlipide kaylee 014359614 Active 2016 Crystal Carla [place] - [facility] 8 09:49:47 Acquired hypothyroid ism 874529818 Active 2016 Crystal Carla [place] - [facility] 8 09:49:47 Coronary arterioscle rosis 68035345 Active 2016 Crystal Carla [place] - [facility] 8 09:49:47 Pain of multiple joints 73629317 Active 2016 Crystal Carla [place] - [facility] 8 09:49:47 Chronic back pain 201898699 Active 2016 Crystal Carla [place] - [facility] 8 09:49:47 Mild major depression 98827152 Active 2016 Crystal Carla [place] - [facility] 8 09:49:47 Essential hypertensio n 01922510 Active 2016 Crystal Carla [place] - [facility] 8 09:49:47 Chronic obstructive pulmonary disease 47323108 Active 2016 Crystal Carla [place] - [facility] 8 09:49:47 Obstructive sleep apnea syndrome 69164023 Active 2016 SHRUTI Wolff 8 09:49:47 Notes:Some problems listed i n Document: #[id number] could not be added to this patient's chart. Please review this document and add these problems to the patient's chart manually as needed. Problem Notes Documentation Provider Name and Address Organization Details Recorded Time Hyperbaric Technologist Consult Note : [place] [address] PATIENT NAME: ROSY GREER UNIT NO.: [id number] ATTENDING DOC: Stiven FRANKEL, Jose Luis Kang ROOM NO.: ADMISSION DATE: LOCATION: [facility] BIRTHDATE: [birth year] ACCT NUM: [id number] CONSULTATION REPORT DATE OF CONSULTATION: 12/20/2017 CONSULTING PHYSICIAN: Jose Luis Saleem MD REFERRING PHYSICIAN: Jose Luis Saleem MD ADDENDUM: Place this at the end of note. The patient was seen and examined by me. I agree with the above assessment and plan. The patient presented with chest pain. Unstable angina features. Underwent left heart catheterization. Intervention was performed. Continue dual antiplatelet therapy. Follow up in Cardiology Clinic in 1 to 2 weeks for evaluation and treatment. Groin well healed. DICTATED BY: MD LUCERO Billings/MODL /[id number] at 1624 Signature on File 12/26/17 1624 , Jose Luis Saleem MD. DATE TIME DICT D 1510 TRANS D 2587 BY: NNEKA CC'ed Logic: CC Provider: PHYSICIAN OTHER Attending Provider: STIVEN Robertson Referring Provider: STIVEN Robertson Consulting Provider: SHANTHI ar[place], [place] - [facility] 12/27/2017 10:06:14 Procedures Surgical History Date Name Laterality Status Provider Name and Address Organization Details Recorded Time 3 A1C level 7.0 to 7.9 completed Gabriella Mac [place] - [facility] 12/06/2022 14:01:19 6 Cardiac Cath completed Catalina Webster [place] - [facility] 05/29 09:23:22 1 Tubal Ligation completed Catalina [place] - [facility] 06/14/2016 09:24:02 Stent, coated/cov w/del sys completed Flores Teixeira [place] - [facility] 12/03/2016 16:37:05 Imaging Results None recorded. Procedure Notes None recorded. Medical Equipment None Reported. Allergies No known drug allergies Medications Name Sig Start Date Stop Date Status Note LastModified by Organization Details LastModified Time Prescript ion - Clarifica tion 12/17 completed PATIENT AIDS Not Available Not Available Not Available furosemid e 40 mg tablet take 1 tablet (40 mg) by oral route once daily for 30 days 01/17 completed Not Available Not Available Not Available atorvasta tin 40 mg tablet TAKE 1 TABLET BY MOUTH ONCE DAILY active Not Available Not Available No t Available metformin 500 mg tablet TAKE 1 TABLET BY MOUTH TWICE DAILY active Not Available Not Available No t Available potassium chloride ER 10 mEq capsule,e xtended release TAKE 1 CAPSULE BY MOUTH ONCE DAILY active Not Available Not Available No t Available prednison e 10 mg tablet 01/17 completed Not Available Not Available Not Available carvedilo l 12.5 mg tablet take 1 tablet (12.5 mg) by oral route 2 times per day with food 12/21 completed carvedil ol 12.5 mg oral tablet;R ecorded Status: Recorded on: 11/16/19 09 4:26PM;D iscontin ued Status: Disconti nued on: 12/22/19 11 8:04PM;U ser: bishopk Not Available Not Available Not Available Depo-Medr ol 40 mg/mL suspensio n for injection Take 0.5 mL by injectio n route. 04/26 completed Not Available Not Available Not Available torsemide 20 mg tablet take 1 tablet by oral route daily 01/23 completed torsemid e 20 mg oral tablet;R ecorded Status: Recorded on: 05/10/20 12 10:53AM; Disconti nued Status: Disconti nued on: 01/24/20 14 5:36PM;U ser: neuss;Es t. Completi on: 06/09/20 12;Indic ation: Hyperten kathleen - (4019 00) Not Available Not Available Not Available albuterol sulfate 2.5 mg/3 mL (0.083 %) solution for nebulizat ion INHALE THREE (3) ML FOUR (4) TIMES A DAY BY NEBULIZA TION ROUTE NEEDED active Not Available Not Available No t Available Vitamin C 500 mg tablet take 1 tablet by oral route daily for 30 days 01/23 completed Vitamin C 500 mg oral tablet;R ecorded Status: Recorded on: 12/22/19 11 1:11PM;D iscontin ued Status: Disconti nued on: 01/24/20 14 5:36PM;U ser: bishopk Not Available Not Available Not Available azithromy cruz 250 mg tablet TAKE TWO (2) TABLETS (500 MG) BY ORAL ROUTE ONCE DAILY FOR ONE (1) DAY THEN ONE (1) TABLET (250 MG) BY ORAL ROUTE ONCE DAILY FOR FOUR (4) DAYS 01/17 completed Not Available Not Available Not Available metoprolo l succinate ER 50 mg tablet,ex tended release 24 hr TAKE 1 TABLET BY MOUTH ONCE DAILY active Not Available Not Available No t Available Vicodin 5 mg-500 mg tablet take 1 tablet by oral route QD -bid--pr n 03/13 completed Vicodin 5-500 mg oral tablet;R ecorded Status: Recorded on: 09/24/19 10 5:13PM;D iscontin ued Status: Disconti nued on: 03/13/20 10 2:02PM;U ser: rachel Est. Completi on: 10/24/19 10 Not Available Not Available Not Available albuterol sulfate 1.25 mg/3 mL solution for nebulizat ion Inhale 3 mL by inhalati on route. 07/11 completed Not Available Not Available Not Available Celestone Soluspan 6 mg/mL suspensio n for injection Take 1 mL by injectio n route. 07/11 completed Not Available Not Available Not Available Keflex 500 mg capsule take 1 capsule by oral route 3 times a day for 10 days 08/06 completed Keflex 500 mg oral capsule; Recorded Status: Recorded on: 05/04/20 13 11:59AM; Disconti nued Status: Disconti nued on: 08/06/20 13 10:09AM; User: izzy;Es t. Completi on: 05/14/20 13 Not Available Not Available Not Available Darvocet- N 100 100 mg-650 mg tablet 1/2-1 po q 8-12 hrs prn 03/13 completed Darvocet -N 100 100-650 mg oral tablet;R ecorded Status: Recorded on: 06/24/20 09 10:11AM; Disconti nued Status: Disconti nued on: 03/13/20 10 2:02PM;U ser: neuss;Es t. Completi on: 08/22/20 09;Indic ation: Pain - (16.7804 00) Not Available Not Available Not Available Vicodin ES 7.5 mg-750 mg tablet bid prn 03/29 completed Vicodin ES 7.5-750 mg oral tablet;R ecorded Status: Recorded on: 12/06/19 12 2:49PM;D iscontin ued Status: Disconti nued on: 03/29/20 12 11:33AM; User: neuss;Es t. Completi on: 02/04/20 12;Indic ation: Pain - (16.7802 00) Not Available Not Available Not Available meloxicam 15 mg tablet TAKE ONE TABLET BY MOUTH ONCE DAILY 01/17 completed Not Available Not Available Not Available Medrol (Royal) 4 mg tablets in a dose pack take as directed for 6 days 04/20 completed Medrol (Royal) 4 mg oral tablets, dose pack;Pre scribe Status: Prescrib ed on: 07/28/20 15 4:21PM;D iscontin ued Status: Disconti nued on: 04/20/20 16 10:26AM; User: haley;Paulette hood Completelio on: 08/03/20 15;Pharm acyVerif ied: 07/28/20 15 4:21PM Not Available Not Available Not Available prednison e 20 mg tablet TAKE THREE (3) TABLETS BY MOUTH FOR THREE (3) DAYS, TWO (2) TABLETS FOR THREE (3) DAYS THEN ONE (1) TABLET FOR THREE (3) DAYS 07/18 completed Not Available Not Available Not Available promethaz ine 6.25 mg-codein e 10 mg/5 mL syrup TAKE FIVE (5) ML FOUR (4) TIMES A DAY BY ORAL ROUTE NEEDED FOR 7 DAYS. 12/17 completed Not Available Not Available Not Available penicilli n V potassium 500 mg tablet take 1 tablet (500 mg) by oral route every 8 hours for 10 days 03/13 completed penicill in V potassiu m 500 mg oral tablet;R ecorded Status: Recorded on: 05/12/20 09 1:07PM;D iscontin ued Status: Disconti nued on: 03/13/20 10 2:02PM;U ser: neuss;Paulette hood Completi on: 05/22/20 09 Not Available Not Available Not Available potassium chloride ER 10 mEq tablet,ex tended release TAKE ONE TABLET BY MOUTH ONCE DAILY WITH FOOD 01/17 completed Not Available Not Available Not Available clopidogr el 75 mg tablet TAKE 1 TABLET BY MOUTH ONCE DAILY active Not Available Not Available No t Available tramadol 50 mg tablet TAKE 1 TABLET BY MOUTH THREE TIMES DAILY NEEDED FOR PAIN 01/17 completed Not Available Not Available Not Available amoxicill in 500 mg tablet take 1 tablet (500 mg) by oral route 3 times per day for 10 days 01/03 completed amoxicil mc 500 mg oral tablet;R ecorded Status: Recorded on: 10/11/19 12 2:45PM;D iscontin ued Status: Disconti nued on: 01/04/20 12 3:35PM;U ser: gored;Es t. Completi on: 10/21/19 12;Print ed: 10/11/19 12 Not Available Not Available Not Available Depo-Medr ol 80 mg/mL suspensio n for injection Take 120 mg by injectio n route. 01/17 completed Not Available Not Available Not Available Levoxyl 25 mcg tablet 1QD - TAKE ONE TABLET BY MOUTH EVERY DAY 12/21 completed Levoxyl 25 mcg oral tablet;R ecorded Status: Recorded on: 12/27/19 10 1:09PM;D iscontin ued Status: Disconti nued on: 12/22/19 11 2:03PM;U ser: neuss;Es t. Completi on: 03/26/20 10 Not Available Not Available Not Available calcium 600 mg (as calcium carbonate 1,500 mg) tablet Take 1 tablet every day by oral route for 14 days. 01/08 completed Not Available Not Available Not Available ceftriaxo ne 1 gram solution for injection Take 1 g by injectio n route. 12/17 completed Not Available Not Available Not Available Vitamins B Complex tablet take 1 tablet by oral route daily 01/23 completed Vitamins B Complex oral tablet;R ecorded Status: Recorded on: 12/22/19 11 1:11PM;D iscontin ued Status: Disconti nued on: 01/24/20 14 5:36PM;U ser: [email or web address] Not Available Not Available Not Available pravastat in 80 mg tablet TAKE 1 TABLET BY MOUTH ONCE DAILY 12/17 completed Not Available Not Available Not Available pravastat in 10 mg tablet TAKE ONE TABLET BY MOUTH AT BEDTIME FOR CHOLESTE ROL 01/17 completed Not Available Not Available Not Available furosemid e 80 mg tablet 12/05 completed Not Available Not Available Not Available meclizine 25 mg tablet take 1/2 to 1 tablet (25 mg) by oral route q 6 to 8 hrs prn 01/17 completed Not Available Not Available Not Available benzonata te 100 mg capsule one po tid prn for cough 07/11 completed Not Available Not Available Not Available doxycycli ne monohydra te 100 mg capsule 10/26 completed Not Available Not Available Not Available levothyro xine 50 mcg tablet TAKE 1 TABLET BY MOUTH ONCE DAILY active Not Available Not Available No t Available pantopraz ole 40 mg tablet,de layed release TAKE 1 TABLET BY MOUTH ONCE DAILY active Not Available Not Available No t Available Prozac 20 mg capsule 11/15 completed Prozac 20 mg;Recor ded Status: Recorded on: 06/01/20 08 10:04PM; Disconti nued Status: Disconti nued on: 11/16/19 09 4:26PM;U ser: reavesa Not Available Not Available Not Available metformin 1,000 mg tablet TAKE ONE TABLET BY MOUTH TWICE DAILY (DUE FOR FOLLOW UP BEFORE RUNNING OUT OF MEDICATI ON) 01/17 completed Not Available Not Available Not Available Cipro 500 mg tablet take 1 tablet (500 mg) by oral route 2 times per day for 10 days 01/23 completed Cipro 500 mg oral tablet;P rescribe Status: Prescrib ed on: 12/21/19 14 5:08PM;D iscontin ued Status: Disconti nued on: 01/24/20 14 4:51PM;U ser: gored;Es t. Completi on: 12/31/19 14;Pharm acyVerif ied: 12/21/19 14 5:08PM Not Available Not Available Not Available Lincocin 300 mg/mL injection solution Take 1 mL by injectio n route. 12/03 completed Not Available Not Available Not Available nitroglyc kameron 0.4 mg sublingua l tablet place 1 tablet (0.4 mg) by sublingu al route 5-10 minutes prior to activiti es which might precipit ate an attack active Not Available Not Available No t Available gabapenti n 300 mg capsule TAKE 1 CAPSULE BY MOUTH THREE TIMES DAILY NEEDED FOR PAIN active Not Available Not Available No t Available aspirin 81 mg chewable tablet chew 1 tablet (81 mg) by oral route once daily 2008 active aspirin 81 mg oral tablet,adalid levy; Recorded Status: Recorded on: 11/16/19 09 4:26PM;U ser: bishopk Not Available Not Available Not Available diclofena c sodium 75 mg tablet,de layed release take 1 tablet (75 mg) by oral route 2 times per day for 30 days 08/06 completed diclofen ac sodium 75 mg oral tablet,d elayed release (/JOSSE); Recorded Status: Recorded on: 10/26/19 11 1:47PM;D iscontin ued Status: Disconti nued on: 08/06/20 13 10:09AM; User: Ricardo White on: 01/25/20 11 Not Available Not Available Not Available Feldene 20 mg capsule take 1 capsule (20 mg) by oral route once daily 03/13 completed Feldene 20 mg oral capsule; Recorded Status: Recorded on: 11/16/19 09 4:36PM;D iscontin ued Status: Disconti nued on: 03/13/20 10 2:02PM;U ser: bishopk; Est. Completi on: 02/14/20 09;Indic ation: Osteoart hritis - (13.7159 00) Not Available Not Available Not Available hydrochlo rothiazid e 25 mg tablet take 1 tablet (25 mg) by oral route once daily for 30 days 03/13 completed hydrochl orothiaz ramon 25 mg oral tablet;R ecorded Status: Recorded on: 05/19/20 09 10:34AM; Disconti nued Status: Disconti nued on: 03/13/20 10 2:02PM;U ser: neuss;Es t. Completi on: 06/18/20 09 Not Available Not Available Not Available furosemid e 20 mg tablet TAKE 1 TABLET BY MOUTH TWICE DAILY NEEDED FOR EDEMA active Not Available Not Available No t Available gabapenti n 100 mg capsule TAKE ONE CAPSULE BY MOUTH THREE TIMES DAILY 05/06 completed gabapent in 100 mg oral capsule; Prescrib e Status: Prescrib ed on: 07/29/20 14 8:29AM;D iscontin ued Status: Disconti nued on: 05/06/20 15 7:03PM;U ser: neuss Not Available Not Available Not Available Tylenol-C odeine #3 300 mg-30 mg tablet take 1 tablet by oral route 2 times a day as needed 03/29 completed Tylenol- Codeine #3 300-30 mg oral tablet;R ecorded Status: Recorded on: 09/06/19 12 1:25PM;D iscontin ued Status: Disconti nued on: 03/29/20 12 11:33AM; User: chichi; Est. Completi on: 11/05/19 12 Not Available Not Available Not Available levofloxa cruz 500 mg tablet Take 1 tablet every 24 hours by oral route for 7 days. 07/11 completed Not Available Not Available Not Available albuterol sulfate HFA 90 mcg/actua tion aerosol inhaler INHALE TWO PUFFS BY MOUTH EVERY FOUR (4) HOURS NEEDED FOR COUGH/WH EEZING active Not Available Not Available No t Available lisinopri l 40 mg tablet TAKE 1 TABLET BY MOUTH ONCE DAILY active Not Available Not Available No t Available cefdinir 300 mg capsule Take 1 capsule twice a day by oral route for 10 days. 12/05 completed Not Available Not Available Not Available Zocor 40 mg tablet take 1 tablet (40 mg) by oral route once daily in the evening for 30 days 05/06 completed Zocor 40 mg oral tablet;R ecorded Status: Recorded on: 08/10/20 10 5:20PM;D iscontin ued Status: Disconti nued on: 05/06/20 15 5:55PM;U ser: chichi; Est. Completi on: 10/09/19 11 Not Available Not Available Not Available loratadin e 10 mg tablet take 1 tablet (10 mg) by oral route once daily for 30 days 01/23 completed loratadi ne 10 mg oral tablet;P rescribe Status: Prescrib ed on: 12/21/19 14 5:08PM;D iscontin ued Status: Disconti nued on: 01/24/20 14 5:36PM;U ser: gored;Es t. Completi on: 03/20/20 14;Pharm acyVerif ied: 12/21/19 14 5:08PM Not Available Not Available Not Available ipratropi um bromide 0.02 % solution for inhalatio n Inhale 2.5 mL by inhalati on route. 07/11 completed Not Available Not Available Not Available flaxseed oral powder use as directed by oral route daily 05/06 completed flaxseed Oral Powder;R ecorded Status: Recorded on: 12/22/19 11 1:11PM;D iscontin ued Status: Disconti nued on: 05/06/20 15 7:03PM;U ser: bishopk Not Available Not Available Not Available Lodine 400 mg tablet take 1 tablet (400 mg) by oral route 2 times per day with food for 15 days 03/13 completed Lodine 400 mg oral tablet;R ecorded Status: Recorded on: 05/12/20 09 1:07PM;D iscontin ued Status: Disconti nued on: 03/13/20 10 2:02PM;U ser: neuss;Es t. Completi on: 05/27/20 09 Not Available Not Available Not Available Bactrim DS 800 mg-160 mg tablet take 1 tablet by oral route 2 times per day for 10 days 08/06 completed Bactrim DS 800-160 mg oral tablet;R ecorded Status: Recorded on: 05/04/20 13 11:59AM; Disconti nued Status: Disconti nued on: 08/06/20 13 10:09AM; User: neuss;Es t. Completi on: 05/14/20 13 Not Available Not Available Not Available Fish Oil Concentra te 1,000 mg capsule take 1 capsule by oral route daily for 90 days 2014 active Fish Oil Concentr ate 1,000 mg oral capsule; Recorded Status: Recorded on: 05/06/20 15 7:03PM;U ser: neuss Not Available Not Available Not Available Mucinex 600 mg tablet, extended release TAKE ONE (1) TABLET EVERY 12 HOURS BY ORAL ROUTE FOR 7 DAYS. 01/17 completed Not Available Not Available Not Available azithromy cruz 500 mg tablet Take 1 tablet every day by oral route for 3 days. 10/26 completed Not Available Not Available Not Available Calcium 500 + D 500 mg-5 mcg (200 unit) tablet take 2 tablets by oral route daily 04/12 completed Calcium 500 + D 500 mg(1,250 mg) -200 unit oral tablet;R ecorded Status: Recorded on: 03/13/20 10 2:02PM;U ser: vesth;Es t. Completi on: 04/12/20 10 Not Available Not Available Not Available Prempro 0.45 mg-1.5 mg tablet 1 po qD 11/15 completed Prempro 0.45-1.5 mg oral tablet;R ecorded Status: Recorded on: 06/01/20 08 10:05PM; Disconti nued Status: Disconti nued on: 11/16/19 09 4:26PM;U ser: showerl Not Available Not Available Not Available Klor-Con M10 mEq tablet,ex tended release TAKE 1 TABLET BY MOUTH ONCE DAILY 01/17 completed Not Available Not Available Not Available duloxetin e 30 mg capsule,d elayed release TAKE 1 CAPSULE BY MOUTH ONCE DAILY active Not Available Not Available No t Available hydrocodo ne-acetam inophen 05/15 completed Hydrocod one-Acet aminophe n Oral;Rec orded Status: Recorded on: 03/13/20 10 2:04PM;D iscontin ued Status: Disconti nued on: 05/15/20 10 2:32PM;U ser: vesth;In dication : Pain - (16.7809 00) Not Available Not Available Not Available Zithromax as directed 03/29 completed zithroma x 250 mg;Recor ded Status: Recorded on: 01/07/20 12 1:01PM;D iscontin ued Status: Disconti nued on: 03/29/20 12 11:33AM; User: yung; Est. Completi on: 01/12/20 12;Indic ation: sinus - (-5) Not Available Not Available Not Available Amoxil one four times a day 03/29 completed amoxil 500 mg.;Joshua rded Status: Recorded on: 01/04/20 12 4:24PM;D iscontin ued Status: Disconti nued on: 03/29/20 12 11:33AM; User: bayron EstCarolann Completelio on: 01/11/20 12;Indic ation: cough - (-5) Not Available Not Available Not Available Keflex 1 bid 12/21 completed keflex 500mg;Re corded Status: Recorded on: 10/02/19 11 2:55PM;D iscontin ued Status: Disconti nued on: 12/22/19 11 1:08PM;U ser: yamilebe sandraEst. Completi on: 10/09/19 11;Indic ation: - (-5);Mary nted: 10/02/19 11 Not Available Not Available Not Available Guaifenes in Expectora nt one tid 03/29 completed quifenes in 600 mg.;Joshua rded Status: Recorded on: 01/07/20 12 1:01PM;D iscontin ued Status: Disconti nued on: 03/29/20 12 11:33AM; User: bayron EstCarolann Completelio on: 01/27/20 12;Indic ation: cough - (-5) Not Available Not Available Not Available Tussionex [place] ER one tsp. q 12 hrs. 03/29 completed tussinex standard ;Recorde d Status: Recorded on: 01/07/20 12 1:01PM;D iscontin ued Status: Disconti nued on: 03/29/20 12 11:33AM; User: bayron EstCarolann Completelio on: 01/12/20 12;Indic ation: cough - (-5) Not Available Not Available Not Available Mucinex D 1 bid 12/21 completed mucinex d;Record ed Status: Recorded on: 10/02/19 11 2:55PM;D iscontin ued Status: Disconti nued on: 12/22/19 11 1:08PM;U ser: isra floresEst. Completi on: 10/12/19 11;Indic ation: - (-5);Mary nted: 10/02/19 11 Not Available Not Available Not Available Zostavax (PF) 19,400 unit/0.65 mL subcutane ous suspensio n inject 0.65 millilit er by subcutan eous route daily for 1 day 12/09 completed Zostavax (PF) 19,400 unit/0.6 5 mL subcutan eous suspensi on for reconsti tution;R ecorded Status: Recorded on: 07/22/20 14 5:13PM;D iscontin ued Status: Disconti nued on: 12/10/19 15 3:22PM;U ser: neuss;Es t. Completi on: 07/23/20 14;Print ed: 07/22/20 14 Not Available Not Available Not Available Symbicort 1qd 01/23 completed symbicor t;Record ed Status: Recorded on: 07/15/20 10 12:03PM; Disconti nued Status: Disconti nued on: 01/24/20 14 5:36PM;U ser: markesbe ryh;Est. Completi on: 07/22/20 10;Indic ation: - (-5) Not Available Not Available Not Available Bystolic 10 mg tablet take 1 tablet (10 mg) by oral route once daily 01/23 completed Bystolic 10 mg oral tablet;R ecorded Status: Recorded on: 02/01/20 12 9:23AM;D iscontin ued Status: Disconti nued on: 01/24/20 14 4:59PM;U ser: woodst;E st. Completi on: 01/27/20 13;Print ed: 02/01/20 12 Not Available Not Available Not Available Vitamin E Complex 120 unit-17 mg capsule take 1 capsule by oral route daily 05/06 completed Vitamin E Complex 120-17 unit-mg oral capsule; Recorded Status: Recorded on: 12/22/19 11 1:11PM;D iscontin ued Status: Disconti nued on: 05/06/20 15 7:03PM;U ser: bishopk Not Available Not Available Not Available Savella 12.5 mg (5)-25 mg(8)-50m g(42) tablets in a dose pack take as directed for 30 days 03/29 completed Savella 12.5 mg (5)-25 mg(8)-50 mg(42) oral tablets, dose pack;Rec orded Status: Recorded on: 03/13/20 10 2:53PM;D iscontin ued Status: Disconti nued on: 03/29/20 12 11:33AM; User: alejo; Est. Completi on: 04/12/20 10;Indic ation: Hanhya benoitia - (13.7291 02) Not Available Not Available Not Available Effient 10 mg tablet take 1 tablet (10 mg) by oral route once daily 04/20 completed Effient 10 mg oral tablet;R ecorded Status: Recorded on: 05/06/20 15 7:03PM;D iscontin ued Status: Disconti nued on: 04/20/20 16 12:00PM; User: izzy Not Available Not Available Not Available Solu-Medr ol (PF) 125 mg/2 mL solution for injection Take 125 mg by injectio n route. 12/17 completed Not Available Not Available Not Available Dulera 100 mcg-5 mcg/actua tion HFA aerosol inhaler 12/05 completed Not Available Not Available Not Available Aerochamb er Plus Flow-Vu active Not Available Not Available Not Available Brilinta 90 mg tablet take 1 tablet (90 mg) by oral route 2 times per day 01/17 completed Not Available Not Available Not Available Invokana 300 mg tablet TAKE ONE TABLET BY MOUTH ONCE DAILY BEFORE THE FIRST MEAL OF THE DAY 01/17 completed Not Available Not Available Not Available Jardiance 25 mg tablet take 1 tablet (25 mg) by oral route once daily in the morning 04/21 completed Jardianc e 25 mg oral tablet;R ecorded Status: Recorded on: 04/20/20 16 11:01AM; Disconti nued Status: Disconti nued on: 04/21/20 16 9:21PM;U ser: neuss;Es t. Completi on: 10/17/19 17;Indic ation: Type 2 Diabetes Mellitus - () Not Available Not Available Not Available Vitals Date Recorded Body height Body mass index (BMI) Body weight Heart rate Oxygen saturation Oxygen saturation in Arterial blood by Pulse oximetry Respiratory rate Systolic And Diastolic Provider Name and Address Organization Details Last Updated DateTime 8 156.21 cm 31.4 kg/m2 17142.1 1 g 90 /min 96 % 96 % 18 /min 122/80 mm[Hg] Gabriella Aguirre [place] - [facility] 8 09:42:04 Date Recorded Body weight Heart rate Oxygen saturation Oxygen saturation in Arterial blood by Pulse oximetry Respiratory rate Systolic And Diastolic Provider Name and Address Organization Details Last Updated DateTime 3 27176.6 3 g 89 /min 96 % 96 % 20 /min 130/80 mm[Hg] Gabriella Mac [place] - [facility] 3 13:37:19 Date Recorded Body height Body mass index (BMI) Body weight Body temperature Heart rate Oxygen saturation Oxygen saturation in Arterial blood by Pulse oximetry Respiratory rate Systolic And Diastolic Provider Name and Address Organization Details Last Updated DateTime 5 154.94 cm 25.5 kg/m2 21273.9 7 g 98.5 [degF] 78 /min 93 % 93 % 18 /min 132/82 mm[Hg] Radha Glynn [place] - [facility] 5 16:07:27 Date Recorded Body weight Body mass index (BMI) Body height Oxygen saturation Oxygen saturation in Arterial blood by Pulse oximetry Heart rate Respiratory rate Body temperature Systolic And Diastolic Provider Name and Address Organization Details Last Updated DateTime 3 40423.6 7 g 28 kg/m2 154.94 cm 91 % 91 % 90 /min 22 /min 98.8 [degF] 126/82 mm[Hg] Mary Crespo [place] - [facility] 3 09:20:43 Date Recorded Body height Body mass index (BMI) Body weight Body temperature Heart rate Oxygen saturation Oxygen saturation in Arterial blood by Pulse oximetry Respiratory rate Systolic And Diastolic Provider Name and Address Organization Details Last Updated DateTime 3 154.94 cm 29.5 kg/m2 01329.4 1 g 98.6 [degF] 94 /min 90 % 90 % 22 /min 132/84 mm[Hg] Mary Crespo [place] - [facility] 15:10:43 Social History Question Answer Notes LastModified by Organizat ion Details LastModified Time Tobacco Smoking Status Current Every Day Smoker Catalina arceo, [place] - [facility] 06/14/2016 09:22:09 Are You Blind Or Do You Have Difficulty Seeing? Yes Glasses Information not available 01/17/2023 What Is Your Level Of Caffeine Consumption? Moderate Information not available 01/17/2023 Are You Deaf Or Do You Have Serious Difficulty Hearing? No Information not available 01/17/2023 What Type Of Diet Are You Following? REGULAR Information not available 01/17/2023 What Is The Highest Grade Or Level Of School You Have Completed Or The Highest Degree You Have Received? [id number] Information not available 01/17/2023 Hard Of Hearing Or Deaf In One Or Both Ears? No [email or web address] Information not available 12/03/2016 Legally Blind In One Or Both Eyes? No [email or web address] Information no t available 12/03/2016 Live Alone Or With Others? Alone Information not available 04/26/2017 What Was The Date Of Your Most Recent Tobacco Screening? 12/17/2024 Information not available 12/17/2024 What Is Your Current Pack Years? [email or web address] years Information not available 01/17/2023 What Is Your Relationship Status? [email or web address] Information not available 12/03/2016 Seat Belts Used Routinely Yes Information not available 12/03/2016 Are You Sexually Active? No Information not available 01/17/2023 Smoke Alarm In Home Yes [email or web address] Information not available 12/03/2016 At What Age Did You Start Smoking Tobacco? 17 Information not available 01/17/2023 How Much Tobacco Do You Smoke? 1 PPD [email or web address] Information not available 06/14/2016 Has Tobacco Cessation Counseling Been Provided? Yes [email or web address] Information not available 12/06/2022 On What Date Was Tobacco Cessation Counseling Provided? 12/17/2024 Information not available 12/17/2024 How Many Years Have You Smoked Tobacco? 49 Information not available 01/17/2023 Do You Have Difficulty Walking Or Climbing Stairs? No Information not available 01/17/2023 Sex: Female Functional Status Question Answer Note LastModified by Organizat ion Details LastModified Time Do you use any illicit or recreational drugs? No Information not available 01/17/2023 Do you or have you ever used any other forms of tobacco or nicotine? No Information not available 01/17/2023 What is your level of alcohol consumption? None Information not available 01/17/2023 Are you currently employed? Yes Information not available 12/03/2016 Do you have transportation difficulties? No Information not available 01/17/2023 Are you able to walk? YESWOREST Information not available 01/17/2023 Do you have difficulty doing errands alone? No Information not available 01/17/2023 Are you able to care for yourself? 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 No Information not available 01/17/2023 What is your exercise level? Occasional [email or web address] Information not available 12/03/2016 Mental Status Question Answer Note LastModified by Organization D etails LastModified Time Do you have difficulty concentrating, remembering or making decisions? No Information no t available 01/17/2023 Family History Relationship Description Onset Age of this Age Resolved Age Notes LastModified by Organization Details LastModified Time Mother Arthritis [email or web address] Not availabl e 06/14/2016 09:21:05 Mother Pulmonary emphysema [email or web address] Not available 2015 09:21:32 Mother Heart disease Not available 2015 09:21:45 Father Diabetes mellitus [email or web address] Not available 2015 09:21:18 Sister Hypothyroidi sm Not available 2015 09:22:03 Sister Diabetes mellitus Not available 2016 16:34:37 Unspecified Relation Malignant neoplasm of lung [email or web address] Not available 2016 16:35:26 Unspecified Relation Sleep apnea [email or web address] Not available 02/2017 16:35:50 Unspecified Relation Fibromyalgia [email or web address] Not available 16:36:08 Medical History Condition Response Diabetes Y Hyperthyroidism Y Hyperlipidemia Y Hypertension Y COPD Y Hypothyroidism Y Gynecological History Statement/Question Response Menses Monthly N If Post Menopausal, Age at Menopause 50 Current Control Method Menopause Most Recent Mammogram Obstetrics History GPAL:G 0 P 0 0 0 0 Immunizations Vaccine Type Date Status Note Provider Nam e and Address Organization Details Recorded Time Influenza, high-dose, trivalent, PF 4 completed Not Available [facility] 12/17/2024 16:00:24 influenza, unspecified formulation 2 completed Mary Figgins null, [place] - [facility] 07/18/2023 15:11:01 influenza, unspecified formulation 3 completed Mary Figgins null, [place] - [facility] 07/18/2023 15:11:01 influenza, unspecified formulation 4 completed Mary Figgins null, [place] - [facility] 07/18/2023 15:11:01 influenza, unspecified formulation 5 completed Mary Figgins [place], [place] [facility] 07/18/2023 15:11:01 Influenza, split virus, quadrivalent, preservative 7 completed Not Available [facility] 09/15/2019 03:54:46 pneumococcal polysaccharide PPV23 4 completed Mary Figgins null, [place] - [facility] 07/18/2023 15:11:01 Influenza, split virus, quadrivalent, PF 6 completed Not Available [facility] 09/15/2019 03:54:16 pneumococcal polysaccharide PPV23 0 completed Mary Figgins null, [place] - [facility] 07/18/2023 15:11:01 Tdap 0 completed Mary Figgins [place], [place] [facility] 07/18/2023 15:11:01 Influenza, high-dose, trivalent, PF 0 completed Mary Figgins null, [place] [facility] 07/18/2023 15:11:01 Influenza, split virus, trivalent, PF 3 completed Mary Figgins null, [facility] 07/18/2023 15:11:01 Influenza, split virus, trivalent, PF 2 completed Mary Figgins null, [facility] 07/18/2023 15:11:01 Influenza, split virus, quadrivalent, PF 8 completed Mary Figgins null, [facility] 07/18/2023 15:11:01 Influenza, split virus, quadrivalent, PF 6 completed Mary Figgins null, [facility] 07/18/2023 15:11:01 Influenza, split virus, quadrivalent, PF 5 completed Mary Figgins null, [facility] 07/18/2023 15:11:01 Influenza, high-dose, quadrivalent, PF 1 completed Mary Figgins null, [facility] 07/18/2023 15:11:00 Influenza, high-dose, quadrivalent, PF 2 completed Mary Figgins null, [facility] 07/18/2023 15:11:01 Pneumococcal conjugate PCV20, polysaccharide [id number] conjugate, adjuvant, PF 2 completed Mary Figgins null, [facility] 07/18/2023 15:11:01 Past Encounters Encounter ID Performer Location Encounter Start Date Encounter Closed Date Diagnosis/Indication Diagnosis SNOMED-CT Code Diagnosis ICD10 Code Diagnosis Note [id number] [facility] [address] [place] [address] 01/07/2012 00:00:00 [id number] [facility] [address] [place] [address] 03/29/2012 00:00:00 [id number] [facility] [address] [place] [address] 05/10/2012 00:00:00 [id number] [facility] [address] [place] [address] 07/03/2012 00:00:00 [id number] [facility] [address] [place] [address] 10/10/2012 00:00:00 [id number] [facility] [address] [place] [address] 02/27/2013 00:00:00 [id number] [facility] [address] [place] [address] 01/07/2012 00:00:00 [id number] [facility] [address] [place] [address] 12/20/2013 00:00:00 [id number] [facility] [address] [place] [address] 01/23/2014 00:00:00 [id number] [facility] [address] [place] [address] 07/22/2014 00:00:00 [id number] [facility] [address] [place] [address] 11/25/2014 00:00:00 [id number] [facility] [address] [place] [address] 02/27/2013 00:00:00 [id number] [facility] [address] [place] [address] 04/16/2013 00:00:00 [id number] [facility] [address] [place] [address] 12/09/2014 00:00:00 [id number] [facility] [address] [place] [address] 06/04/2013 00:00:00 [id number] [facility] [address] [place] [address] 05/06/2015 00:00:00 [id number] [facility] [address] [place] [address] 08/06/2013 00:00:00 [id number] [facility] [address] [place] [address] 09/25/2013 00:00:00 [id number] [facility] [address] [place] [address] 10/22/2013 00:00:00 [id number] [facility] [address] [place] [address] [address] 05/06/2015 00:00:00 [id number] [facility] [address] [place] [place] [address] [address] 06/23/2015 00:00:00 [id number] [facility] [address] [place] [address] 07/28/2015 00:00:00 [id number] [facility] [address] [place] [address] 10/06/2015 00:00:00 [id number] [facility] [address] [place] [address] 04/20/2016 00:00:00 [id number] [facility] [address] [place] [address] 07/15/2010 00:00:00 [id number] [facility] [address] [place] [address] 10/02/2010 00:00:00 [id number] [facility] [address] [place] [address] 12/21/2010 00:00:00 [id number] [facility] [address] [place] [address] 03/08/2011 00:00:00 [id number] [facility] [address] [place] [address] 10/11/2011 00:00:00 [id number] [facility] [address] [place] [address] 12/06/2011 00:00:00 [id number] [facility] [address] [place] [address] 01/04/2012 00:00:00 [id number] [facility] [address] [place] [address] 11/15/2005 00:00:00 [id number] [facility] [address] [place] [address] 11/15/2008 00:00:00 [id number] [facility] [address] [place] [address] 05/16/2009 00:00:00 [id number] [facility] [address] [place] [address] 06/23/2009 00:00:00 [id number] [facility] [address] [place] [address] 08/25/2009 00:00:00 [id number] [facility] [address] [place] [address] 10/29/2009 00:00:00 [id number] [facility] [address] [place] [address] 12/18/2009 00:00:00 [id number] [facility] [address] [place] [address] 03/13/2010 00:00:00 [id number] [facility] [address] [place] [address] 04/06/2010 00:00:00 [id number] [facility] [address] [place] [address] 07/15/2010 00:00:00 [id number] Todd Kiran MD [facility] [address] [place] [address] [address] 06/14/2016 09:05:11 06/14/2016 10:41:34 Type 2 diabetes mellitus without complication 249450534 E11.9 Acquired hypothyroidism 341200876 E03.9 Discharge from nipple [id number] N64.52 Administra tion of influenza vaccine 74775622 Z23 Hyperlipidemia 45499988 E78.5 [id number] Bernice Hay [address] [place] [address] 09/09/2016 16:26:27 09/09/2016 16:53:27 Spasmodic cough 75575223 R05 Bronchitis 08802166 J40 Upper resp iratory infection 61829952 J06.9 [id number] Todd Kiran MD [address] [place] [address] 12/20/2016 09:32:48 12/20/2016 10:56:30 Cough 35297551 R05 Acquired hypothyroidism 668895073 E03.9 Chronic ob structive pulmonary disease 71421398 J44.9 Well contr olled type 2 diabetes mellitus 899954622 E11.9 Screening for malignant neoplasm of colon 820769628 Z12.11 Mammography abnormal 168 745359 R92.8 Nicotine dependence 5629 4008 F17.200 Essential hypertension 28613349 I10 Pain of mu ltiple joints 78456866 M25.50 Obstructiv e sleep apnea syndrome 00676757 G47.33 Mixed hyperlipidemia 267 689619 E78.2 [id number] Bernice Hay [address] [place] [address] 04/26/2017 16:23:12 04/26/2017 16:56:41 Body mass index 30+ - obesity 549564634 Z68.32 Bronchitis 60330159 J40 [id number] Bernice Hay [address] [place] [address] 04/28/2017 12:43:00 04/28/2017 13:19:33 Lower respiratory tract infection 73682025 J22 [id number] Todd Kiran MD [address] [place] [address] 07/11/2017 10:19:53 07/11/2017 13:00:20 Obstructive sleep apnea syndrome 24252549 G47.33 Acquired hypothyroidism 623926058 E03.9 Administra tion of influenza vaccine 75993081 Z23 Well contr olled type 2 diabetes mellitus 789544717 E11.9 Chronic ob structive pulmonary disease 99003847 J44.9 Mixed hyperlipidemia 267 337349 E78.2 [id number] Todd Kiran MD [address] [place] [address] 10/26/2017 08:51:39 10/26/2017 11:07:58 Body mass index 30+ - obesity 096074893 Z68.31 Chest discomfort 3433311 09 R07.89 Bronchitis 16816784 J40 Well contr olled type 2 diabetes mellitus 726192814 E11.9 Chronic ob structive pulmonary disease 38580233 J44.9 Nicotine dependence 5629 4008 F17.275 [id number] Bernice Hay [address] [place] [address] 12/06/2022 13:26:08 12/06/2022 14:10:35 Respiratory tract congestion 319738005 R09.89 Well contr olled type 2 diabetes mellitus 244425327 E11.9 Chronic ob structive pulmonary disease 78095072 J44.9 Essential hypertension 12693527 I10 controlled at 130/80 [id number] Lorenzo Thayer MD [address] [place] [address] 01/17/2023 09:03:06 01/17/2023 10:44:19 Body mass index 25-29 - overweight 839820891 Z68.28 Overweight 370875285 E66 .3 Fever 529484768 R50.9 Nasal congestion 7567387 0 R09.81 [id number] Lorenzo Thayer MD [address] [place] [address] 07/18/2023 14:35:44 07/18/2023 15:43:18 Upper respiratory infection 24225232 J06.9 [id number] Helena Oglesby [address] [place] [address] 12/17/2024 15:52:23 12/17/2024 17:02:33 Overweight 117693676 E66.3 Overweight in adulthood with body mass index of 25 or more but less than 30 625854861 Z68.25 Intermittent tremor 3663 7003 R25.1 Diarrhea 59655268 R19.7 Advised to increase water and fiber intake. Fatigue 44515275 R53.83 Health Concerns Section Related Observation LastModified by Organization Detai ls LastModified Time None Recorded Concern Status LastModified by Organization Details LastModified Time None Recorded Advance Directives Directive None Recorded Payers Insurance Date Sequence Insurance Name Policy Number Policy Joy Covered Member ID Joy Member ID Guarantor Name 12/17/2024 1 [employer] (MEDICARE REPLACEMENT/AD VANTAGE - PPO) Rosy Greer [id number] Rosy Greer 12/17/2024 1 [employer] (MEDICARE REPLACEMENT/AD VANTAGE - PPO) Rosy Greer [id number] Rosy Greer 02/06/2025 1 [place]MO[place] [id number] Rosy Greer [id number] Rosy Greer 12/17/2024 [place] SHRUTI Greer [id number] Rosy Greer 12/17/2024 [place] SHAUN Greer [id number] Rosy Greer 12/17/2024 1 [employer] [place] [employer] [place] (MED[place]AC[place] - [place]MO) SHAUN Greer [id number] Rosy Greer 12/17/2024 [place] SHAUN Greer [id number] Rosy Greer 11/12/2016 1 UNSPECIFIED REMIT PAYOR Rosy Greer Notes Date Note Type Note Provider Name and Address Organization Details Recorded Time 10/26/2017 text/html Chest discomfort left side. Started about 3 weeks. Has had bronchitis recenlty. SHRUTI Price - [facility] 10/26/2017 14:19:02 12/06/2022 text/html pt c/o cough, congestion denies any fever Bernice [place] null, [place] - [facility] 12/06/2022 14:08:37 01/17/2023 text/html Pt presents for 3-5 days of worsening cough (mostly dry, occasionally productive of jason sputum, no hemoptysis), associated congestion and sore throat. Pt endorses subjective fevers and chills, intermittent wheezing and SoB but denies arthralgias, diarrhea, rashes, lymphadenopathy. Pt is a smoker. States did get Flu and Covid vaccs; endorses multiple sick contacts. Pt treated for same about 1 month prior. States as soon as I finished abx, symptoms returned. Lorenzo Thayer MD [address], [place], [address], [place] - [facility] 01/17/2023 12:18:42 07/18/2023 text/html Pt presents for 3-5 days of worsening cough (mostly dry, occasionally productive of white thick sputum, no hemoptysis), associated congestion and sore throat. Pt endorses subjective fevers and chills, intermittent wheezing and SoB but denies arthralgias, diarrhea, rashes, lymphadenopathy. Pt is a smoker. Endorses multiple sick contacts. Lorenzo Thayer MD [address], [place], [address], [place] - [facility] 07/18/2023 15:41:01 12/17/2024 text/html Patient presents with c/o feeling shaky and intermittent shaking of bilateral hands x 1 month. Patient reports she eats approx. 1 meal per day. Patient also with c/o fatigue x approx. 1 year.Patient also with c/o intermittent diarrhea x a couple months .Denies dizziness, chest pain, SOA, vision changes, headaches, abdominal pain, vomiting, edema, and hematochezia. Helena Ogles[place], COSMETICIAN [address], [place], [address], [place] [facility] 12/17/2024 17:35:55 OBGyn Episode No OBEpisode recorded.
--- OUTSIDE RECORDS SUMMARY | 2025-02-27 11:50 | XMS_ITS | Data Portability ---
Author Organization [place] - [facility] - [facility], [facility] Address [address] [place] [address] Care Team Providers Care Embroidery Machine Operator Name Role Phone MOHINIVERA Sears Primary Care Provider Assessment Encounter Date Assessment Date Assessment LastModified by Organization Details LastModified Time 07/04/2023 07/04/[address] cardiac catheterization showed severe coronary disease where she underwent stenting. That was back in November. Echocardiogram after that showed hyperdynamic function at 70-75%. EKG today shows normal sinus rhythm with no ST or T-wave changes. Essentially normal. Blood pressure and heart rate look good. She feels well. I am not going to make any changes in the medical regimen. Continue Lipitor and Plavix. Follow-up in Cardiology Clinic in 3 months. Blood work as per primary care. Meds and chart reviewed in full today Continue Plavix and Lipitor Blood work as per primary care Continue Lasix at current dose Monitor blood pressure and heart rate Follow-up in Cardiology Clinic in 3 months Plan: -Continue other current medications. -Continue aggressive risk factor modification. -Recommend LDL less than 70 -Encouraged regular exercise and activity. Patient Education was printed, I have reviewed the Past Medical, Family, and Social Histories along with ROS and all orders in today's record, and have noted any changes. Medications, charts and records reviewed in full today. EKG shows normal sinus rhythm with no ST or T-wave changes EKG 12/27/22 normal sinus rhythm with poor R-wave progression and low voltage. Chronic pulmonary pattern with nonspecific ST and T-wave changes. LAST ECHO: 01/10/2023 EJECTION FRACTION 70-75%. MILD LVH. OTHERWISE, NORMAL ECHO LAST ISCHEMIC EVAL: 05/06/14 ISCHEMIA OF A MODERATE PORTION OF THE ANTERIOR AND APICAL MCKEON ON MYOCARDIAL PERFUSION. ABNORMAL EXERCISE EKG. MODERATE REDUCTION FUNCTIONAL CAPACITY. NORMAL LV SF. LAST HEART CATH: 12/19/2017 [facility]. LVEDP 10. SEVERE TWO-VESSEL [place] CORONARY ARTERY DISEASE SUBTOTAL OCCLUSION AND FRESH [...] DOMINANT RCA. LAST LDL: 01/10/2023- 153 PAST LHC: 02/23/2016 Syl Foreman CMA, am scribing for, and in the presence of, Kerri Rangel MD. Kerri Foreman M.D. performed the services as described in this documentation, as scribed by Syl Menendez CMA in my presence, and it is both accurate and complete. This note was dictated using LAVEGO software. If something is unclear, or does not make sense, please do not hesitate to contact our office at [phone] for clarification. [email or web address] Not available 07/05/2023 13:23:58 10/17/2023 10/17/2023 doing well. EKG at last visit was normal. She feels well. We are not going to make any changes in the medical regimen. Blood pressure and heart rate are under excellent control. She is on excellent cardiac medication. EKG at follow-up. Follow-up in Cardiology Clinic in 3-4 months. Meds and chart reviewed in full today Continue Plavix and Lipitor Blood work as per primary care Continue Lasix at current dose Monitor blood pressure and heart rate Follow-up in Cardiology Clinic in 3-4 months EKG at follow-up Plan: -Continue other current medications. -Continue aggressive risk factor modification. -Recommend LDL less than 70 -Encouraged regular exercise and activity. Patient Education was printed, I have reviewed the Past Medical, Family, and Social Histories along with ROS and all orders in today's record, and have noted any changes. Medications, charts and records reviewed in full today. EKG at last visit showed normal sinus rhythm with no ST or T-wave changes EKG 12/27/22 normal sinus rhythm with poor R-wave progression and low voltage. Chronic pulmonary pattern with nonspecific ST and T-wave changes. LAST ECHO: 01/10/2023 EJECTION FRACTION 70-75%. MILD LVH. OTHERWISE, NORMAL ECHO LAST ISCHEMIC EVAL: 05/06/14 ISCHEMIA OF A MODERATE PORTION OF THE ANTERIOR AND APICAL MCKEON ON MYOCARDIAL PERFUSION. ABNORMAL EXERCISE EKG. MODERATE REDUCTION FUNCTIONAL CAPACITY. NORMAL LV SF. LAST HEART CATH: 12/19/2017 [facility]. LVEDP 10. SEVERE TWO-VESSEL [place] CORONARY ARTERY DISEASE SUBTOTAL OCCLUSION AND FRESH [...] DOMINANT RCA. LAST LDL: 01/10/2023- 153 PAST [facility]: 02/23/2016 [email or web address] Not available 10/17/2023 11:39:38 02/27/2024 02/27/2024 Doing well. EKG today shows normal sinus rhythm with sinus bradycardia and a heart rate of 58. No ST or T-wave changes. Poor R-wave progression low voltage. Overall doing well. Blood pressure and heart rate look good. Follow-up in 4 months. Blood work is being followed by primary care. Meds and chart reviewed in full today Continue Plavix and Lipitor Blood work as per primary care Continue Lasix at current dose Monitor blood pressure and heart rate Follow-up in Cardiology Clinic in 4 months EKG at follow-up Plan: -Continue other current medications. -Continue aggressive risk factor modification. -Recommend LDL less than 70 -Encouraged regular exercise and activity. Patient Education was printed, I have reviewed the Past Medical, Family, and Social Histories along with ROS and all orders in today's record, and have noted any changes. Medications, charts and records reviewed in full today. EKG today shows normal sinus rhythm with poor R-wave progression and low voltage. Chronic pulmonary pattern. No change from baseline LAST ECHO: 01/10/2023 EJECTION FRACTION 70-75%. MILD LVH. OTHERWISE, NORMAL ECHO LAST ISCHEMIC EVAL: 05/06/14 ISCHEMIA OF A MODERATE PORTION OF THE ANTERIOR AND APICAL MCKEON ON MYOCARDIAL PERFUSION. ABNORMAL EXERCISE EKG. MODERATE REDUCTION FUNCTIONAL CAPACITY. NORMAL LV SF. LAST HEART CATH: 12/19/2017 [facility]. LVEDP 10. SEVERE TWO-VESSEL [place] CORONARY ARTERY DISEASE SUBTOTAL OCCLUSION AND FRESH [...] DOMINANT RCA. LAST LDL: 01/10/2023- 153 PAST [facility]: 02/23/2016 [email or web address] Not available 02/27/2024 09:30:13 07/09/2024 07/09/2024 carotid sound go od but she is having TIA like symptoms. She is having pain left side of the neck that occurs with movement and then she has episodes where she can not feel like she gets her speech out. She was seen by primary care. They wanted to order an echo and carotid. I agree with this. She has not having any chest pain pressure tightness or shortness of breath. EKG shows normal sinus rhythm with poor R-wave progression but no ST or T-wave changes. We will get echo and carotid. I will see her back in 4-6 weeks. Blood pressure and heart rate are under good control. She still takes Plavix. She is on good cardiac medications. Continue metoprolol. Meds and chart reviewed in full today. No signs or symptoms of heart failure Patient Education was printed, I have reviewed the Past Medical, Family, and Social Histories along with ROS and all orders in today's record, and have noted any changes. Medications, charts and records reviewed in full today. PLAN: Continue metoprolol Continue Plavix Continue atorvastatin at current dose Blood work Echocardiogram Carotid ultrasound Follow-up in Cardiology Clinic in 4-6 weeks No chest pain pressure or tightness. No shortness of breath. Hold off on ischemic evaluation at this time Blood work as per primary care Monitor blood pressure and heart rate Continue other current medications. Continue aggressive risk factor modification. Recommend LDL less than 70 Encouraged regular exercise and activity. EKG today shows normal sinus rhythm poor R-wave progression but no ST or T-wave changes EK02/27/2024 -showed normal sinus rhythm with poor R-wave progression and low voltage. Chronic pulmonary pattern. No change from baseline LAST ECHO: 01/10/2023 EJECTION FRACTION 70-75%. MILD LVH. OTHERWISE, NORMAL ECHO LAST ISCHEMIC EVAL: 05/06/14 ISCHEMIA OF A MODERATE PORTION OF THE ANTERIOR AND APICAL MCKEON ON MYOCARDIAL PERFUSION. ABNORMAL EXERCISE EKG. MODERATE REDUCTION FUNCTIONAL CAPACITY. NORMAL LV SF. LAST HEART CATH: 12/19/2017 [facility]. LVEDP 10. SEVERE TWO-VESSEL [place] CORONARY ARTERY DISEASE SUBTOTAL OCCLUSION AND FRESH [...] DOMINANT RCA. LAST LDL: 01/10/2023- 153 PAST LHC: 02/23/2016 IARCENIO LPN, I AM SCRIBING FOR, AND IN THE OFFICE/PRESENCE OF, KERRI RANGEL MD. IKERRI M.D. PERFORMED THE SERVICES DESCRIBED IN THIS DOCUMENTATION, SCRIBED BY ARCENIO HOWARD LPN IN MY PRESENCE, AND IT IS BOTH ACCURATE AND COMPLETE. [email or web address] Not available 07/09/2024 14:15:21 01/14/2025 01/14/2025 Doing very well. No chest [...] NORMAL LV SF. LAST HEART CATH: 12/19/2017 [facility]. LVEDP 10. SEVERE TWO-VESSEL [place] CORONARY ARTERY DISEASE SUBTOTAL OCCLUSION AND FRESH [...] DOMINANT RCA. LAST LDL: 01/10/2023- 153 PAST LHC: 02/23/2016 IARCENIO LPN, I AM SCRIBING FOR, AND IN THE OFFICE/PRESENCE OF, KERRI RANGEL MD. IKERRI M.D. PERFORMED THE SERVICES DESCRIBED IN THIS DOCUMENTATION, SCRIBED BY ARCENIO HOWARD LPN IN MY PRESENCE, AND IT IS BOTH ACCURATE AND COMPLETE. [email or web address] Not available 01/14/2025 09:54:59 Plan of Treatment Reminders Order Date Submit Date Provider Last Modified By Organization Details Last Modified Time Details Appointments OV EST 30 2024 09:00A M Kerri Rangel MD Not available Not available Not available Lab None recorded. Referral None recorded. Procedures None recorded. Surgeries None recorded. Imaging electroca rdiogram 2024 025 [email or web address] [facility], [address] [place] [address] Dr Thao, [place], [address], 01/14/2025 09:55:15 electroca rdiogram [address] Thao, [place], [address], 07/09/2024 14:15:47 electroca rdiogram [address] Thao, [place], [address], 02/27/2024 09:30:14 electroca rdiogram [address] Thao, [place], [address], 07/05/2023 13:24:11 Medication Orders None recorded. Patient TargetsNo targets recorded. Patient InstructionsNo instructions recorded. Reason for Referral None Reported. Results Created Date Observation Date Name Description Value Unit Range Abnormal Flag Note LastModifiedBy Organization Detail LastModifiedTime 07/04/20 23 elect rocar diogr am No observ ation record ed. [email or web address] Thao, [place], [address], 07/04/2023 09:56:06 07/04/20 23 07/04/2023 elect rocar diogr am No observ ation record ed. [email or web address] Not Available 2022 10:00:53 02/27/20 24 elect rocar diogr am No observ ation record ed. [address] Thao, [place], [address], 02/27/2024 09:14:44 02/27/20 24 02/27/2024 elect rocar diogr am No observ ation record ed. [address] Thao, [place], [address], 02/27/2024 09:32:13 07/09/20 24 elect rocar diogr am No observ ation record ed. FACUNDO Mv [address], [place], [address], 07/09/2024 08:56:44 07/09/20 24 07/09/2024 elect rocar diogr am No observ ation record ed. [email or web address] Not Available 06/2024 12:20:00 01/15/20 elect rocar diogr am No observ ation record ed. FACUNDO [facility] [address], [place], [address], 01/14/2025 08:55:11 01/15/20 25 01/14/2025 elect rocar diogr am No observ ation record ed. [email or web address] Not Available 2024 12:18:26 Result Notes None recorded. Problems Name Problem SNOMED Code Status Onset Date Resolution Date Notes Provider Name and Address Organization Details Recorded Time Transient cerebral ischemia 889024891 Active 2023 Kerri Rangel MD [facility] kSARIA [facility],[address], [place], [address], [place] [facility] & [place] 4 14:15:25 Hyperlipidemia 18089000 Active 2022 Kerri Rangel MD [address] [place] [address],[address], [place], [address], [place] [facility] - [place] & [place] 3 10:07:54 Near syncope 289803264 Active 2022 Kerri Rangel MD [facility],[address], [place], [address], [place] [facility] - [place] & [place] 3 10:07:58 Coronary arterioscleros is 98958083 Active 2022 Kerri Rangel MD [facility],[address], [place], [address], [place] - [facility] - [place] & [place] 3 10:08:03 Essential hypertension 17330010 Active 2022 Kerri Rangel MD [address] [place] [address],[address], [place], [address], [place] - [facility] - [place] & [place] 3 10:08:06 Diastolic dysfunction 0675164 Active 2022 Kerri Rangel MD [address] [place] [address],[address], [place], [address], [place] - [facility] - [place] & [place] 3 10:08:11 Type 2 diabetes mellitus without complication 359347425 Active 2022 Kerri Rangel MD [address] [place] [address],[address], [place], [address], [place] - [facility] - [place] & [place] 3 13:23:44 Problem Notes None recorded. Procedures Surgical History Date Name Laterality Status Provider Name and Address Organization Details Recorded Time 12/20/19 18 Cardiac Catheterization completed Syl Shon [place] - [facility] - [place] & [place] 02/17/2023 15:54:24 02/23/20 16 Cardiac Catheterization completed Syl Shon [place] [facility] [place] & [place] 02/17/2023 16:00:58 08/29/19 15 Hip Surgery completed Elvia Aldana [place] [facility] [place] & [place] 12/27/2022 11:15:58 05/27/20 14 Cardiac Catheterization completed Syl Shon [place] [facility] [place] & [place] 02/17/2023 16:01:50 02/24/20 10 Cardiac Catheterization completed Syl Shon [place] [facility] [place] & [place] 02/17/2023 16:02:31 01/15/20 09 Cardiac Catheterization completed Syl Shon [place] [facility] [place] & [place] 02/17/2023 16:03:12 Imaging Results None recorded. Procedure [...] and Address Organization Details Last Updated DateTime 4 152.4 cm 29.4 kg/m2 45935.0 1 g 93 % 93 % 73 /min 110 mm[Hg] 80 mm[Hg] Arcenio Howard [facility] & [place] 4 11:08:55 Date Recorded Body height Body mass index (BMI) Body weight Oxygen saturation Oxygen saturation in Arterial blood by Pulse oximetry Heart rate Systolic blood pressure Diastolic blood pressure Provider Name and Address Organization Details Last Updated DateTime 5 152.4 cm 26.4 kg/m2 52629.4 1 g 90 % 90 % 70 /min 142 mm[Hg] 78 mm[Hg] Yue Elaine [facility] & [place] 5 08:46:49 Date Recorded Body height Body mass index (BMI) Body weight Oxygen saturation Oxygen saturation in Arterial blood by Pulse oximetry Heart rate Systolic blood pressure Diastolic blood pressure Provider Name and Address Organization Details Last Updated DateTime 4 152.4 cm 29.3 kg/m2 88949.8 6 g 91 % 91 % 58 /min 138 mm[Hg] 84 mm[Hg] Alem garcia [facility] & [place] 4 09:19:42 Date Recorded Body height Body mass index (BMI) Body weight Oxygen saturation Oxygen saturation in Arterial blood by Pulse oximetry Heart rate Systolic blood pressure Diastolic blood pressure Provider Name and Address Organization Details Last Updated DateTime 3 152.4 cm 30.6 kg/m2 81323.5 7 g 97 % 97 % 71 /min 130 mm[Hg] 82 mm[Hg] Arcenio Howard [facility] & [place] 3 09:54:01 Date Recorded Body height Body mass index (BMI) Body weight Oxygen saturation Oxygen saturation in Arterial blood by Pulse oximetry Heart rate Respiratory rate Systolic blood pressure Diastolic blood pressure Provider Name and Address Organization Details Last Updated DateTime 4 152.4 cm 28.9 kg/m2 60869.3 9 g 89 % 89 % 67 /min 16 /min 144 mm[Hg] 86 mm[Hg] Nelda Olguin [facility] & [place] 4 08:54:09 Social History Question Answer Notes LastModified by Nerdies Details LastModified Time Tobacco Smoking Status Current Every Day Smoker Elvia Aldana [facility], [facility] & [place] 12/27/2022 11:15:58 What Is Your Level Of Caffeine Consumption? Occasional [email or web address] Information not available 07/09/2024 What Type Of Diet Are You Following? REGULAR [email or web address] Information not available 07/09/2024 What Was The Date Of Your Most Recent Tobacco Screening? 12/27/2022 [email or web address] Information not available 12/27/2022 Are You Passively Exposed To Smoke? No [email or web address] Information not available 12/27/2022 How Much Tobacco Do You Smoke? 1 PPD [email or web address] Information not available 12/27/2022 How Many Years Have You Smoked Tobacco? 30 [email or web address] Information not available 12/27/2022 Sex: Female Functional Status Question Answer Note LastModified by Nerdies Details LastModified Time Do you use any illicit or recreational drugs? No [email or web address] Information not available 12/27/2022 Do you or have you ever used any other forms of tobacco or nicotine? No [email or web address] Information not available 07/09/2024 What is your level of alcohol consumption? None [email or web address] Information not available 12/27/2022 What is your exercise level? Occasional [email or web address] Information not available 12/27/2022 Mental Status None [...] SNOMED-CT Code Diagnosis ICD10 Code Diagnosis Note [id number] JOHNNY BARRAZA NP, S [address] [place] [address] 6 12/27/2022 09:10:46 12/27/2022 10:07:03 Hyperlipidemia 79600626 E78.5 Near syncope 298456651 R 55 Coronary arteriosclerosis 89473662 I25.10 Essential hypertension 27286893 I10 Diastolic dysfunction 35 13689 I51.9 [id number] Kerri Rangel MD [address] [place] [address] 6 02/21/2023 10:53:08 02/21/2023 11:12:41 Coronary arteriosclerosis 39596881 I25.10 Diastolic dysfunction 35 81758 I51.9 Essential hypertension 68358954 I10 Hyperlipidemia 87764816 E78.5 Near syncope 042474863 R 55 [id number] Kerri Rangel MD [address] [place] [address] 07/04/2023 09:28:24 07/04/2023 10:33:43 Essential hypertension 39742064 I10 Coronary arteriosclerosis 27165261 I25.10 Diastolic dysfunction 35 48614 I51.9 Hyperlipidemia 07489952 E78.5 Type 2 page betes mellitus without complication 023654957 E11.9 [id number] Kerri Rangel MD [address] [place] [address] 6 10/17/2023 10:56:33 10/17/2023 11:16:39 Coronary arteriosclerosis 56752711 I25.10 Diastolic dysfunction 35 92789 I51.9 Essential hypertension 37246538 I10 Hyperlipidemia 47814363 E78.5 Type 2 page betes mellitus without complication 128170343 E11.9 [id number] Kerri Rangel MD [address] [place] [address] 02/27/2024 08:57:18 02/27/2024 09:28:08 Essential hypertension 62151976 I10 Coronary arteriosclerosis 58677190 I25.10 Diastolic dysfunction 35 36992 I51.9 Hyperlipidemia 97659494 E78.5 Type 2 page betes mellitus without complication 801651037 E11.9 [id number] Kerri Rangel MD [address] [place] [address] 07/09/2024 08:06:01 07/09/2024 09:13:42 Essential hypertension 00180291 I10 Coronary arteriosclerosis 01820422 I25.10 Diastolic dysfunction 35 70620 I51.9 Hyperlipidemia 48716090 E78.5 Type 2 page betes mellitus without complication 703090151 E11.9 Transient cerebral ischemia 921503203 G45.9 [id number] Kerri Rangel MD [address] [place] [address] 01/14/2025 08:36:03 01/14/2025 09:07:52 Essential hypertension 64478893 I10 Coronary arteriosclerosis 33964905 I25.10 Diastolic dysfunction 35 84457 I51.9 Hyperlipidemia 26196489 E78.5 Type 2 page betes mellitus without complication 803943427 E11.9 Transient cerebral ischemia 141855061 G45.9 no further episodes Health Concerns Section Related Observation LastModified by Organization Detai ls LastModified Time None Recorded Concern Status LastModified by Organization Details LastModified Time None Recorded Advance Directives Directive None Recorded Payers Insurance Date Sequence Insurance Name Policy Number Policy Joy Covered Member ID Joy Member ID Guarantor Name 01/12/2025 1 [place]MEDICARE [place]PLACEMENT HMO) [id number] Eun Greer [id number] Eun Greer 07/09/2024 2 MEDICAID-[facility] CHOICES - FFS/TRADITIONA L Eun Greer [id number] Eun Greer 07/09/2024 1 [employer] (MEDICARE REPLACEMENT/AD VANTAGE - PPO) Eun Greer [id number] Eun Greer 07/09/2024 1 [place] Eun Greer [id number] Eun Greer Notes Date Note Type Note Provider Name and Address Organization Details Recorded Time 07/04/2023 text/html overall doing we ll. No chest pain pressure or tightness. No shortness of breath. Overall feels well Kerri Rangel MD [address] [place] [address],[address], [place], [address], [facility] & [place] 07/05/2023 13:24:14 10/17/2023 text/html doing well. No c hest pain pressure or tightness. No shortness of breath. Overall feels well Kerri Rangel MD [address] [place] [address],[address], [place], [address], [facility] & [place] 10/17/2023 11:39:58 02/27/2024 text/html Doing well. No c hest pain pressure or tightness. No shortness of breath. Overall feels well Kerri Rangel MD [address] [place] [address],[address], [place], [address], [facility] & [place] 02/27/2024 09:30:38 07/09/2024 text/html patient has been having pain in the neck with some movement but also has some TIA like symptoms when this occurs. She feels like she can not talk. She knows what she wants to say but can not say it. This has been over the last month. No chest pain pressure or tightness. No shortness of breath. No lower extremity edema orthopnea PND Kerri Rangel MD [address] [place] [address],[address], [place], [address], [facility] & [place] 07/09/2024 14:15:51 01/14/2025 text/html doing well. Here for six-month follow-up. She did not get her echocardiogram and carotid but has not had any further symptoms. No chest pain pressure or tightness. No shortness of breath. No further TIA like symptoms. Kerri Rangel MD [address] [facility],[address], [place], [address], [facility] - [facility] - [place] & [place] 01/14/2025 09:55:19 OBGyn Episode No OBEpisode recorded.
== END 2025-02-25 23:59 | disposition home or self-care (01) ==
LOC: LAB.DROPOF 02-27 11:48
PROVIDERS: PCP Family Medicine; Visit Provider Family Medicine
DX: I10 Essential (primary) hypertension (principal); I25.10 Atherosclerotic heart disease of native coronary artery without angina pectoris; J44.9 Chronic obstructive pulmonary disease, unspecified; E58 Dietary calcium deficiency; E11.9 Type 2 diabetes mellitus without complications; Z11.59 Encounter for screening for other viral diseases
CPT/HCPCS: 80053; 80061; 80074; 82043; 82570; 83036; 83970; 84443; 85025; 87389

== ENCOUNTER 2025-03-11 09:41 | Outpatient (CLI) | payer MEDICARE, SELFPAY ==
--- OUTSIDE RECORDS SUMMARY | 2025-03-11 09:45 | XMS_ITS | Continuity of Care Document ---
Author Organization [place] - [place] - [place] & [place], [facility] Address [address] [place] [address] Care Team Providers Care Information Clerk Brokerage Name Role Phone SHANTHI VERA Primary Care Provider [phone] Assessment Encounter Date Assessment Date Assessment LastModified [...] NORMAL LV SF. LAST HEART CATH: 12/19/2017 [facility]. LVEDP 10. SEVERE TWO-VESSEL HAVASUPAI CORONARY ARTERY DISEASE SUBTOTAL OCCLUSION AND FRESH [...] DOMINANT RCA. LAST LDL: 01/10/2023- 153 PAST [facility]: 02/23/2016 ARCENIO Foreman LPN, I AM SCRIBING [...] Imaging electroca rdiogram 2024 025 mango [facility], [address] [place] [address] [address], [place], [address], 01/14/2025 09:55:15 Medication Orders None recorded. Patient TargetsNo targets recorded. Patient InstructionsNo instructions recorded. Reason for Referral None Reported. Results Created Date Observation Date Name Description Value Unit Range Abnormal Flag Note LastModifiedBy Organization Detail LastModifiedTime 01/15/20 25 kevin decker am No observ ation record ed. FACUNDO Norman [address], [place], [address], 01/14/2025 08:55:11 01/15/20 25 01/14/2025 elect shirley decker am No observ ation record ed. [email or web address] Not Available 2024 12:18:26 Result Notes None recorded. Problems Name Problem SNOMED Code Status Onset Date Resolution Date Notes Provider Name and Address Organization Details Recorded Time Transient cerebral ischemia 567162693 Active [address] [facility], [place], [address], [place] & [place] 4 14:15:25 Hyperlipidemia 54831171 Active [address] [facility] [employer] [facility],[address], [place], [address], [place] 3 10:07:54 Near syncope 772790953 Active [address] [facility] [employer] [facility],[address], [place], [address], [place] 3 10:07:58 Coronary arterioscleros is 82494659 Active 2022 Kerri Rangel MD [address] [place] [address],[address], [place], [address], [place] 3 10:08:03 Essential hypertension 38865515 Active [address] [facility],[address], [place], [address], [place] 3 10:08:06 Diastolic dysfunction 1988479 Active 2022 Kerri Rangel MD [address] [place] [address],[address], [place], [address], [place] 3 10:08:11 Type 2 diabetes mellitus without complication 585273695 Active 2022 Kerri Rangel MD [address] [place] [address],[address], [place], [address], [place] & [place] 13:23:44 Problem Notes None recorded. Procedures Surgical History Date Name Laterality Status Provider Name and Address Organization Details Recorded Time 12/20/19 18 Cardiac Catheterization completed Syl Menendez [place] - [place] - [place] & [place] 02/17/2023 15:54:24 02/23/20 16 Cardiac Catheterization completed Syl BAHENA - [place] - [place] & [place] 02/17/2023 16:00:58 08/29/19 15 Hip Surgery completed Elvia Aldana SHRUT[place] - [place] - [place] & [place] 12/27/2022 11:15:58 05/27/20 14 Cardiac Catheterization completed Syl BAHENA - [facility] - [place] & [place] 02/17/2023 16:01:50 02/24/20 10 Cardiac Catheterization completed Syl BAHENA - [place] - [place] & [place] 02/17/2023 16:02:31 01/15/20 09 Cardiac Catheterization completed Syl Pinedaes [place] [...] blood by Pulse oximetry Heart rate Systolic And Diastolic Provider Name and Address Organization Details Last Updated DateTime 5 152.4 cm 26.4 kg/m2 78178.4 1 g 90 % 90 % 70 /min 142/78 mm[Hg] Yue Elaine [facility] & [place] 5 08:46:49 Social History Question Answer Notes LastModified by Mieple ion Details LastModified Time Tobacco Smoking Status Current Every Day Smoker Elvia Aldana [facility] & [place] 12/27/2022 11:15:58 What Is Your Level Of Caffeine Consumption? Occasional Information not available 07/09/2024 What Type Of Diet Are You Following? REGULAR [email or web address] Information not available 07/09/2024 What Was The Date Of Your Most Recent Tobacco Screening? 12/27/2022 [email or web address] Information not available 12/27/2022 Are You Passively Exposed To Smoke? No [email or web address] Information not available 12/27/2022 How Much Tobacco Do You Smoke? 1 PPD [email or web address] Information not available 12/27/2022 How Many Years Have You Smoked Tobacco? 30 [email or web address] Information not available 12/27/2022 Sex: Female Functional Status Question Answer Note LastModified by Kardiumizat ion Details LastModified Time Do you use any illicit or recreational drugs? No [email or web address] Information not available 12/27/2022 Do you or have you ever used any other forms of tobacco or nicotine? No [email or web address] Information not available 07/09/2024 What is your level of alcohol consumption? None [email or web address] Information not available 12/27/2022 What is your exercise level? Occasional [email or web address] Information not available 12/27/2022 Mental Status None [...] SNOMED-CT Code Diagnosis ICD10 Code Diagnosis Note [id number] Kerri Rangel MD [address] [place] [address] 01/14/2025 08:36:03 01/14/2025 09:07:52 Essential hypertension 62797723 I10 Coronary arteriosclerosis 97059897 I25.10 Diastolic dysfunction 35 64149 I51.9 Hyperlipidemia 14301618 E78.5 Type 2 page betes mellitus without complication 470215888 E11.9 Transient cerebral ischemia 540029052 G45.9 no further episodes Health Concerns Section Related Observation LastModified by Organization Detai ls LastModified Time None Recorded Concern Status LastModified by Organization Details LastModified Time None Recorded Payers Encounter Date Sequence Insurance Name Policy Number Policy Joy Covered Member ID Joy Member ID Guarantor Name 01/14/2025 1 [place] MED[place] (MEDICARE REPLACEMENT HMO) [id number] Eun Greer [id number] Eun Greer Notes Date Note Type Note Provider Name and Address Organization Details Recorded Time 01/14/2025 text/html doing well. Here for six-month follow-up. She did not get her echocardiogram and carotid but has not had any further symptoms. No chest pain pressure or tightness. No shortness of breath. No further TIA like symptoms. Kerri Rangel MD [address] [place] [address],[address], [place], [address], [facility] - [place] - [facility] 01/14/2025 09:55:19 OBGyn Episode No OBEpisode recorded.
--- OUTSIDE RECORDS SUMMARY | 2025-03-11 09:45 | XMS_ITS | Data Portability ---
Author Organization [place] - [place] - [facility] Address [address] [place] [address] Care Team Providers Care Sap Technical Developer Name Role Phone MOHINIVERA Sears Primary Care [...] NORMAL LV SF. LAST HEART CATH: 12/19/2017 [facility]. LVEDP 10. SEVERE TWO-VESSEL PAIMI[place] CORONARY ARTERY DISEASE SUBTOTAL OCCLUSION AND FRESH [...] and complete. This note was dictated using Trunity software. If something is unclear, or does not make sense, please do not hesitate to contact our office at [phone] for clarification. [email or web address] Not available 07/05/2023 13:23:58 [...] NORMAL LV SF. LAST HEART CATH: 12/19/2017 [facility]. LVEDP 10. SEVERE TWO-VESSEL PAIMIUT CORONARY ARTERY DISEASE SUBTOTAL OCCLUSION AND FRESH [...] DOMINANT RCA. LAST LDL: 01/10/2023- 153 PAST [facility]: 02/23/2016 [email or web address] Not available 10/17/2023 11:39:38 02/27/2024 [...] NORMAL LV SF. LAST HEART CATH: 12/19/2017 [facility]. LVEDP 10. SEVERE TWO-VESSEL PAIMIUT CORONARY ARTERY DISEASE SUBTOTAL OCCLUSION AND FRESH [...] DOMINANT RCA. LAST LDL: 01/10/2023- 153 PAST [facility]: 02/23/2016 marco [email or web address] Not available 02/27/2024 09:30:13 [...] NORMAL LV SF. LAST HEART CATH: 12/19/2017 [facility]. LVEDP 10. SEVERE TWO-VESSEL PAIMIUT CORONARY ARTERY DISEASE SUBTOTAL OCCLUSION AND FRESH [...] AND IT IS BOTH ACCURATE AND COMPLETE. [email or web address] Not available 07/09/2024 14:15:21 01/14/2025 01/14/2025 Doing [...] NORMAL LV SF. LAST HEART CATH: 12/19/2017 [facility]. LVEDP 10. SEVERE TWO-VESSEL PAIMIUT CORONARY ARTERY DISEASE SUBTOTAL OCCLUSION AND FRESH [...] Imaging electroca rdiogram 2024 025 mango [facility], [address] [place] [address] [address], [place], [address], 01/14/2025 09:55:15 electroca rdiogram [address], [place], [address], 07/09/2024 14:15:47 electroca rdiogram [address], [place], [address], 02/27/2024 09:30:14 electroca rdiogram [address], [place], [address], 07/05/2023 13:24:11 Medication Orders None recorded. Patient TargetsNo targets recorded. Patient InstructionsNo instructions recorded. Reason for Referral None Reported. Results Created Date Observation Date Name Description Value Unit Range Abnormal Flag Note LastModifiedBy Organization Detail LastModifiedTime 07/04/20 23 elect rocar diogr am No observ ation record ed. FACUNDO[address], [place], [address], 07/04/2023 09:56:06 07/04/20 23 07/04/2023 elect rocar diogr am No observ ation record ed. [email or web address] Not Available 2022 10:00:53 02/27/20 24 elect rocar diogr am No observ ation record ed. [address], [place], [address], 02/27/2024 09:14:44 02/27/20 24 02/27/2024 elect rocar diogr am No observ ation record ed. [address], [place], [address], 02/27/2024 09:32:13 07/09/20 24 elect rocar diogr am No observ ation record ed. FACUNDO Mv [address], [place], [address], 07/09/2024 08:56:44 07/09/20 24 07/09/2024 elect rocar diogr am No observ ation record ed. Not Available 06/2024 12:20:00 01/15/20 elect rocar diogr am No observ ation record ed. FACUNDO Norman [address], [place], [address], 01/14/2025 08:55:11 01/15/20 25 01/14/2025 elect rocar diogr am No observ ation record ed. [email or web address] Not Available 2024 12:18:26 Result Notes None recorded. Problems Name Problem SNOMED Code Status Onset Date Resolution Date Notes Provider Name and Address Organization Details Recorded Time Transient cerebral ischemia 452989915 Active 2023 Kerri Rangel MD [facility] [employer] [facility],[address], [place], [address], [place] [facility] [facility] & [place] 4 14:15:25 Hyperlipidemia 52564969 Active 2022 Kerri Rangel MD [address] [place] [address],[address], [place], [address], [place] & [place] 3 10:07:54 Near syncope 544955169 Active 2022 Kerri Rangel MD [facility] [employer] [facility],[address], [place], [address], [place] 3 10:07:58 Coronary arterioscleros is 56263886 Active 2022 Kerri Rangel MD [facility] [employer] [facility],[address], [place], [address], [place] & [place] 3 10:08:03 Essential hypertension 96722015 Active 2022 Kerri Rangel MD [address] [place] [address],[address], [place], [address], [place] - [place] & [place] 3 10:08:06 Diastolic dysfunction 1054316 Active 2022 Kerri Rangel MD [address] [place] [address],[address], [place], [address], [place] - [place] & [place] 3 10:08:11 Type 2 diabetes mellitus without complication 955232770 Active 2022 Kerri Rangel MD [address] [place] [address],[address], [place], [address], [place] - [place] & [place] 3 13:23:44 Problem Notes None recorded. Procedures Surgical History Date Name Laterality Status Provider Name and Address Organization Details Recorded Time 12/20/19 18 Cardiac Catheterization completed Syl Shon [place] - [place] & [place] 02/17/2023 15:54:24 02/23/20 16 Cardiac Catheterization completed Syl Shon [place] 02/17/2023 16:00:58 08/29/19 15 Hip Surgery completed Elvia Aldana [place] 12/27/2022 11:15:58 05/27/20 14 Cardiac Catheterization completed Syl Shon [place] 02/17/2023 16:01:50 02/24/20 10 Cardiac Catheterization completed Syl Shon [place] 02/17/2023 16:02:31 01/15/20 09 Cardiac Catheterization completed Syl Shon [place] 02/17/2023 16:03:12 Imaging Results None recorded. Procedure [...] Updated DateTime 4 152.4 cm 29.4 kg/m2 68138.0 1 g 93 % 93 % 73 /min 110/80 mm[Hg] Arcenio Howard [facility] & [place] 4 11:08:55 Date Recorded Body height Body mass index (BMI) Body weight Oxygen saturation Oxygen saturation in Arterial blood by Pulse oximetry Heart rate Systolic And Diastolic Provider Name and Address Organization Details Last Updated DateTime 5 152.4 cm 26.4 kg/m2 78823.4 1 g 90 % 90 % 70 /min 142/78 mm[Hg] Yue Elaine [facility] & [place] 5 08:46:49 Date Recorded Body height Body mass index (BMI) Body weight Oxygen saturation Oxygen saturation in Arterial blood by Pulse oximetry Heart rate Systolic And Diastolic Provider Name and Address Organization Details Last Updated DateTime 4 152.4 cm 29.3 kg/m2 55567.8 6 g 91 % 91 % 58 /min 138/84 mm[Hg] Alem garcia [facility] & [place] 4 09:19:42 Date Recorded Body height Body mass index (BMI) Body weight Oxygen saturation Oxygen saturation in Arterial blood by Pulse oximetry Heart rate Systolic And Diastolic Provider Name and Address Organization Details Last Updated DateTime 3 152.4 cm 30.6 kg/m2 95682.5 7 g 97 % 97 % 71 /min 130/82 mm[Hg] Arcenio Howard [facility] & [place] 3 09:54:01 Date Recorded Body height Body mass index (BMI) Body weight Oxygen saturation Oxygen saturation in Arterial blood by Pulse oximetry Heart rate Respiratory rate Systolic And Diastolic Provider Name and Address Organization Details Last Updated DateTime 4 152.4 cm 28.9 kg/m2 56876.3 9 g 89 % 89 % 67 /min 16 /min 144/86 mm[Hg] Nelda Olguin [facility] & [place] 4 08:54:09 Social History Question Answer Notes LastModified by [employer] Details LastModified Time Tobacco Smoking Status Current Every Day Smoker Elvia Jovan [facility] & [place] 12/27/2022 11:15:58 What Is Your Level Of Caffeine Consumption? Occasional [email or web address] Information not available 07/09/2024 What Type Of Diet Are You Following? REGULAR [email or web address] Information not available 07/09/2024 What Was The Date Of Your Most Recent Tobacco Screening? 12/27/2022 [email or web address] Information not available 12/27/2022 Are You Passively Exposed To Smoke? No [email or web address] Information not available 12/27/2022 How Much Tobacco Do You Smoke? 1 PPD [email or web address] Information not available 12/27/2022 How Many Years Have You Smoked Tobacco? 30 [email or web address] Information not available 12/27/2022 Sex: Female Functional Status Question Answer Note LastModified by [employer] ion Details LastModified Time Do you use any illicit or recreational drugs? No [email or web address] Information not available 12/27/2022 Do you or have you ever used any other forms of tobacco or nicotine? No [email or web address] Information not available 07/09/2024 What is your level of alcohol consumption? None Information not available 12/27/2022 What is your exercise level? Occasional [email or web address] Information not available 12/27/2022 Mental Status None recorded. Family History Nothing Reported. Medical History Condition Response Thyroid Disease Y Dizziness or Fainting Y High Cholesterol Y Diabetes Y Low Blood Pressure Y Hypertension Y Gynecological HistoryNo gynecological history recorded. Obstetrics History GPAL:G 0 P 0 0 0 0 Past Encounters Encounter ID Performer Location Encounter Start Date Encounter Closed Date Diagnosis/Indication Diagnosis SNOMED-CT Code Diagnosis ICD10 Code Diagnosis Note [id number] JOHNNY BARRAZA NP, S [address] [place] [address] 6 12/27/2022 09:10:46 12/27/2022 10:07:03 Hyperlipidemia 71690453 E78.5 Near syncope 156251718 R 55 Coronary arteriosclerosis 73688725 I25.10 Essential hypertension 97561697 I10 Diastolic dysfunction 35 64915 I51.9 [id number] Kerir Rangel MD [address] [place] [address] 6 02/21/2023 10:53:08 02/21/2023 11:12:41 Coronary arteriosclerosis 13753628 I25.10 Diastolic dysfunction 35 80920 I51.9 Essential hypertension 82964278 I10 Hyperlipidemia 19950491 E78.5 Near syncope 524861377 R 55 [id number] Kerri Rangel MD [address] [place] [address] 6 07/04/2023 09:28:24 07/04/2023 10:33:43 Essential hypertension 12555098 I10 Coronary arteriosclerosis 33311520 I25.10 Diastolic dysfunction 35 76912 I51.9 Hyperlipidemia 97323953 E78.5 Type 2 page betes mellitus without complication 710460618 E11.9 [id number] Kerri Rangel MD [address] [place] [address] 6 10/17/2023 10:56:33 10/17/2023 11:16:39 Coronary arteriosclerosis 80264066 I25.10 Diastolic dysfunction 35 42636 I51.9 Essential hypertension 51785638 I10 Hyperlipidemia 65426223 E78.5 Type 2 page betes mellitus without complication 946185740 E11.9 [id number] Kerri Rangel MD [address] [place] [address] 02/27/2024 08:57:18 02/27/2024 09:28:08 Essential hypertension 69301056 I10 Coronary arteriosclerosis 34489446 I25.10 Diastolic dysfunction 35 57448 I51.9 Hyperlipidemia 92500689 E78.5 Type 2 page betes mellitus without complication 762478154 E11.9 [id number] Kerri Rangel MD [address] [place] [address] 07/09/2024 08:06:01 07/09/2024 09:13:42 Essential hypertension 28506801 I10 Coronary arteriosclerosis 12230268 I25.10 Diastolic dysfunction 35 08279 I51.9 Hyperlipidemia 23287638 E78.5 Type 2 page betes mellitus without complication 443016739 E11.9 Transient cerebral ischemia 204537923 G45.9 [id number] Kerri Rangel MD [address] [place] [address] 01/14/2025 08:36:03 01/14/2025 09:07:52 Essential hypertension 81077099 I10 Coronary arteriosclerosis 06177653 I25.10 Diastolic dysfunction 35 05687 I51.9 Hyperlipidemia 55341399 E78.5 Type 2 page betes mellitus without complication 912606854 E11.9 Transient cerebral ischemia 653110310 G45.9 no further episodes Health Concerns Section Related Observation LastModified by Organization Detai ls LastModified Time None Recorded Concern Status LastModified by Organization Details LastModified Time None Recorded Advance Directives Directive None Recorded Payers Insurance Date Sequence Insurance Name Policy Number Policy Joy Covered Member ID Joy Member ID Guarantor Name 01/12/2025 1 [place]MEDICARE REPLACEMENT HMO) [id number] Eun Greer [id number] Eun Greer 07/09/2024 2 MEDICAID-[facility] CHOICES - FFS/TRADITIONA L Eun Greer [id number] Eun Greer 07/09/2024 1 [employer] (MEDICARE REPLACEMENT/AD VANTAGE - PPO) Eun Greer [id number] Eun Greer 07/09/2024 1 [place] Eun Greer [id number] Eun Greer Notes Date Note Type Note Provider Name and Address Organization Details Recorded Time 07/04/2023 text/html overall doing we ll. No chest pain pressure or tightness. No shortness of breath. Overall feels well Kerri Rangel MD [address] [place] [address] Drive,[address], [place], [address], [facility] & [place] 07/05/2023 13:24:14 10/17/2023 text/html doing well. No c hest pain pressure or tightness. No shortness of breath. Overall feels well Kerri Rangel MD [address] [place] [address],[address], [place], [address], [facility] & [place] 10/17/2023 11:39:58 02/27/2024 text/html Doing well. No c hest pain pressure or tightness. No shortness of breath. Overall feels well Kerri Rangel MD [address] [place] [address] Drive,[address], [place], [address], [facility] & [place] 02/27/2024 09:30:38 07/09/2024 text/html patient has been [...] extremity edema orthopnea PND Kerri Rangel MD [address] [place] [address] Drive,[address], [place], [address], [facility] & [place] 07/09/2024 14:15:51 01/14/2025 text/html doing well. Here for six-month follow-up. She did not get her echocardiogram and carotid but has not had any further symptoms. No chest pain pressure or tightness. No shortness of breath. No further TIA like symptoms. Kerri Rangel MD [address] [facility],[address], [place], [address], [facility] - [place] - [place] & [place] 01/14/2025 09:55:19 OBGyn Episode No OBEpisode recorded.
--- OUTSIDE RECORDS SUMMARY | 2025-03-11 09:46 | XMS_ITS | Data Portability ---
Author Organization [facility] Address [address] [place] [address] Assessment Encounter Date Assessment Date Assessment LastModified [...] concerns. f/u 2 weeks for Medicare AWE [email or web address] Not available 12/17/2024 16:56:32 Plan of Treatment Reminders Order Date Submit Date Provider Last Modified By Organization Details Last Modified Time Details Appointments None recorded. Lab HbA1c (hemoglobin A1c), blood 2024 025 [email or web address] [facility], [address] [place], [address], 5 16:55:22 TSH + free T4, serum 2024 025 FACUNDO [facility], [address], [place] F, [place], [address], 5 12:40:38 CMP, serum or plasma 2024 025 FACUNDO [facility], [address], [place], [place], [address], 5 12:40:39 CBC w/ auto diff 2024 025 MONROE [facility], [address], [place], [place], [address], 5 12:40:38 cobalamin and folate panel, serum 2024 025 [place] [facility], [address], [place], [place], [address], 5 12:40:40 vitamin D, 25-hydroxy, total, serum 2024 025 FACUNDO [facility], [address], [place], [place], [address], 5 12:40:40 iron + TIBC + ferritin, serum 2024 025 [place]E [facility], [address], [place], [place], [address], 5 12:40:37 rapid flu (A+B) [address], [address] [place], [address], 3 11:53:37 rapid SARS CoV + SARS CoV 2 Ag, QL IA, respiratory specimen [address], [address] [place], [address], 3 11:53:37 HbA1c (hemoglobin A1c), blood [address], [address] [place], [address], 3 14:09:04 glucose, fingerstick , blood 2022 023 [facility], [address] [place], [place] [address] [place], [address], 3 14:09:04 Referral cardiologis t referral - please schedule as soon as possible 2017 018 [email or web address] Jose Luis Saleem MD, [address] [place] [address] , [address], [address], 8 09:58:48 Procedures nebulizer treatment (PROC) 2022 023 Not available 3 15:14:44 Surgeries None recorded. Imaging XR, chest, 2 view 2017 018 [facility], [address] [place] [address] [address] [place], [address], 8 11:40:37 electrocard iogram 2017 018 [facility], [address] [place] [address] [address] [place], [address], 8 12:29:01 Medication Orders Solu-Medrol (PF) 125 mg/2 mL solution for injection 2022 023 [email or web address] Not available 5 16:48:39 ceftriaxone 1 gram solution for injection 2022 023 [email or web address] Not available 5 16:49:15 albuterol sulfate HFA 90 mcg/actuati on aerosol inhaler 2022 023 [facility], [address] [place] [address], [place], [address], 3 15:20:25 promethazin e 6.25 mg-codeine 10 mg/5 mL syrup 2022 023 [email or web address] [facility], [address] [place] [address], [place], [address], 5 16:48:46 prednisone 20 mg tablet [address] [facility] [place], [address] [place] [address], [address], 3 15:11:19 ceftriaxone 1 gram solution for injection 2022 023 Not available 5 16:49:15 guaifenesin ER 600 mg tablet, extended release 12 hr [address] [facility] [place], [address] [place] [address], [address], 3 09:15:30 Zithromax Z-Royal 250 mg tablet [address], [address] [place] [address], [address], 3 09:13:06 albuterol sulfate 2.5 mg/3 mL (0.083 %) solution for nebulizatio n 2022 023 [facility] [place], [address] [place] [address], [address], 3 14:06:31 Depo-Medrol 80 mg/mL suspension for injection 2022 023 [email or web address] [address] Not available 3 09:13:35 Depo-Medrol 80 mg/mL suspension for injection [address] [facility], [address] [place], [address], 3 09:13:35 cefdinir 300 mg capsule 2017 018 [email or web address] [facility], [address] [place], [address], 13:40:26 Nitrostat 0.4 mg sublingual tablet 2017 018 [email or web address] [facility], [address] [place], [address], 19:13:00 Patient TargetsNo targets recorded. Patient Instructions Encounter Date Encounter Id Patient Instructions Last Modified By Organization Details Last Modified Time 10/26/2017 [id number] Quitting Tobacco : Care Instructions [email or web address] Not available 10/26/2017 19:13:00 bronchitis: care instructions [email or web address] Not available 10/26/2017 11:40:37 chronic obstructive pulmonary disease (COPD): care instructions sneus Not available 10/26/2017 11:40:37 learning about copd and how to prevent lung infections sneus Not available 10/26/2017 11:40:37 A healthy lifestyle: care instructions sneus Not available 10/26/2017 11:40:37 12/06/2022 [id number] high blood pressure: care instructions Not available [...] RTC prn Not available 12/06/2022 14:07:09 01/17/2023 [id number] body mass index: care instructions [email or web address] Not available 01/17/2023 09:32:38 learning about healthy weight [email or web address] Not available 01/17/2023 09:32:39 12/17/2024 [id number] diarrhea: care instructions [email or web address] Not available 12/17/2024 17:34:25 body mass index: care instructions [email or web address] Not available 12/17/2024 16:55:22 learning about healthy weight [email or web address] Not available 12/17/2024 16:55:22 Reason for Referral Check Totaler Referral for Ch est discomfort please schedule as soon as possible Referring Physician: Todd Kiran, Family Medicine, Encounter Date: 10/26/2017 Results Created Date Observation Date Name Description Value Unit Range Abnormal Flag Note LastModifiedBy Organization Detail LastModifiedTime 10/26/19 18 10/26/2017 elect rocya diogr am Rate & Rhythm normal normal Not Available [address] [place], [address], 10/26/2017 09:46:49 10/26/19 18 10/26/2017 elect rocya diogr am Interpretati on border line r axis deviat ion qrs axis >901 Not Available [address] [place], [address], 10/26/2017 09:46:49 12/07/19 23 12/06/2022 gluco se, finge rstic k, blood Blood Glucose: mg/dl 167 Not Available [address] [place], [address], 12/06/2022 14:00:56 12/07/19 23 12/06/2022 HbA1c (hemo globi n A1c), blood HbA1C 7.3 % Not Available [address] [place], [address], 12/06/2022 14:00:38 07/18/20 23 07/18/2023 rapid SARS CoV + SARS CoV 2 Ag, QL IA, respi rator y speci men SARS CoV antigen Negati ve Not Available [address] [place], [address], 07/18/2023 15:14:22 07/18/20 23 07/18/2023 rapid flu (A+B) Flu negati ve Not Available [facility] [address] [place], [address], 07/18/2023 15:14:21 07/18/20 23 07/18/2023 rapid flu (A+B) Type Both A & B Not Available [facility] [address] [place], [address], 07/18/2023 15:14:21 12/18/19 25 12/17/2024 HbA1c (hemo globi n A1c), blood HbA1C 6.8 % Not Available [facility] [address] [facility] [address] [place], [address], 12/17/2024 16:35:04 12/19/19 25 12/18/2024 FE+TI BC+FE R iron bind.cap.(TI BC) 334 ug/dL 250-45 0 normal Not Available [facility] ([facility]) [address] [place], [address], 12/18/2024 12:40:37 12/19/19 25 12/18/2024 FE+TI BC+FE R UIBC 267 ug/dL 118-36 9 normal Not Available [facility] ([facility]) [address] [place], [address], 12/18/2024 12:40:37 12/19/19 25 12/18/2024 FE+TI BC+FE R iron 67 ug/dL 27-139 normal Not Available [facility] ([facility]) [address] [place], [address], 12/18/2024 12:40:37 12/19/19 25 12/18/2024 FE+TI BC+FE R iron saturation 20 % 15-55 normal Not Available [facility]) [address] [place], [address], 12/18/2024 12:40:37 12/19/19 25 12/18/2024 FE+TI BC+FE R ferritin 154 NG/mL 15-150 above high normal Not Available [facility] ([facility]) [address] [place], [address], 12/18/2024 12:40:37 12/19/19 25 12/18/2024 TSH+F REE T4 TSH 2.270 uIU/m L 0.450- 4.500 normal Not Available [facility] ([facility]) [address] [place], [address], 12/18/2024 12:40:38 12/19/19 25 12/18/2024 TSH+F REE T4 T4,free(dire ct) 1.62 NG/dL 0.82-1 .77 normal Not Available [facility] ([facility]) [address] [place], [address], 12/18/2024 12:40:38 12/19/19 25 12/18/2024 CBC WITH DIFFE RENTI AL/PL ATELE T WBC 10.4 x10e3 /uL 3.4-10 .8 normal Not Available [facility] ([facility]) [address] [place], [address], 12/18/2024 12:40:38 12/19/19 25 12/18/2024 CBC WITH DIFFE RENTI AL/PL ATELE T RBC 5.20 x10e6 /uL 3.77-5 .28 normal Not Available [facility] ([facility]) [address] [place], [address], 12/18/2024 12:40:38 12/19/19 25 12/18/2024 CBC WITH DIFFE RENTI AL/PL ATELE T hemoglobin 15.4 g/dL 11.1-1 5.9 normal Not Available [facility] ([facility]) [address] [place], [address], 12/18/2024 12:40:38 12/19/19 25 12/18/2024 CBC WITH DIFFE RENTI AL/PL ATELE T hematocrit 47.6 % 34.0-4 6.6 above high normal Not Available [facility] ([facility]) [address] [place], [address], 12/18/2024 12:40:38 12/19/19 25 12/18/2024 CBC WITH DIFFE RENTI AL/PL ATELE T MCV 92 fL 79-97 normal Not Available [facility] ([facility]) [address] [place], [address], 12/18/2024 12:40:38 12/19/19 25 12/18/2024 CBC WITH DIFFE RENTI AL/PL ATELE T MCH 29.6 pg 26.6-3 3.0 normal Not Available [facility] ([facility]) [address] [place], [address], 12/18/2024 12:40:38 12/19/19 25 12/18/2024 CBC WITH DIFFE RENTI AL/PL ATELE T MCHC 32.4 g/dL 31.5-3 5.7 normal Not Available [facility] ([facility]) [address] [place], [address], 12/18/2024 12:40:38 12/19/19 25 12/18/2024 CBC WITH DIFFE RENTI AL/PL ATELE T RDW 13.0 % 11.7-1 5.4 Not Available [facility] ([facility]) [address] [place], [address], 12/18/2024 12:40:38 12/19/19 25 12/18/2024 CBC WITH DIFFE RENTI AL/PL ATELE T platelets 365 x10e3 /uL 150-45 0 normal Not Available [facility] ([facility]) [address] [place], [address], 12/18/2024 12:40:38 12/19/19 25 12/18/2024 CBC WITH DIFFE RENTI AL/PL ATELE T neutrophils 61 % not estab. normal Not Available [facility] ([facility]) [address] [facility], [place], [address], 12/18/2024 12:40:38 12/19/19 25 12/18/2024 CBC WITH DIFFE RENTI AL/PL ATELE T lymphs 31 % not estab. normal Not Available [facility] ([facility]) [address] [facility], [place], [address], 12/18/2024 12:40:38 12/19/19 25 12/18/2024 CBC WITH DIFFE RENTI AL/PL ATELE T monocytes 6 % not estab. normal Not Available [facility] ([facility]) [address] [facility], [place], [address], 12/18/2024 12:40:38 12/19/19 25 12/18/2024 CBC WITH DIFFE RENTI AL/PL ATELE T eos 2 % not estab. normal Not Available [facility] ([facility]) [address] [facility], [place], [address], 12/18/2024 12:40:38 12/19/19 25 12/18/2024 CBC WITH DIFFE RENTI AL/PL ATELE T basos 0 % not estab. normal Not Available [facility] ([facility]) [address] [facility], [place], [address], 12/18/2024 12:40:38 12/19/19 25 12/18/2024 CBC WITH DIFFE RENTI AL/PL ATELE T immature cells SKIN CARE CONSULTANT Not Available [facility] ([facility]) [address] [place], [address], 12/18/2024 12:40:38 12/19/19 25 12/18/2024 CBC WITH DIFFE RENTI AL/PL ATELE T neutrophils (absolute) 6.3 x10e3 /uL 1.4-7. 0 normal Not Available [facility] ([facility]) [address] [place], [address], 12/18/2024 12:40:38 12/19/19 25 12/18/2024 CBC WITH DIFFE RENTI AL/PL ATELE T lymphs (absolute) 3.2 x10e3 /uL 0.7-3. 1 above high normal Not Available [facility] ([facility]) [address] [place], [address], 12/18/2024 12:40:38 12/19/19 25 12/18/2024 CBC WITH DIFFE RENTI AL/PL ATELE T monocytes(ab solute) 0.6 x10e3 /uL 0.1-0. 9 normal Not Available [facility] ([facility]) [address] [place], [address], 12/18/2024 12:40:38 12/19/19 25 12/18/2024 CBC WITH DIFFE RENTI AL/PL ATELE T eos (absolute) 0.2 x10e3 /uL 0.0-0. 4 normal Not Available [facility] ([facility]) [address] [place], [address], 12/18/2024 12:40:38 12/19/19 25 12/18/2024 CBC WITH DIFFE RENTI AL/PL ATELE T baso (absolute) 0.0 x10e3 /uL 0.0-0. 2 normal Not Available [facility] ([facility]) [address] [place], [address], 12/18/2024 12:40:38 12/19/19 25 12/18/2024 CBC WITH DIFFE RENTI AL/PL ATELE T immature granulocytes 0 % not estab. Not Available [facility] ([facility]) [address] [place], [address], 12/18/2024 12:40:38 12/19/19 25 12/18/2024 CBC WITH DIFFE RENTI AL/PL ATELE T immature grans (abs) 0.0 x10e3 /uL 0.0-0. 1 Not Available [facility] ([facility]) [address] [facility], [place], [address], 12/18/2024 12:40:38 12/19/19 25 12/18/2024 CBC WITH DIFFE RENTI AL/PL ATELE T NRBC SKIN CARE CONSULTANT Not Available [facility] ([facility]) [address] [facility], [place], [address], 12/18/2024 12:40:38 12/19/19 25 12/18/2024 CBC WITH DIFFE RENTI AL/PL ATELE T hematology comments: SKIN CARE CONSULTANT Not Available [facility] ([facility]) [address] [facility], [place], [address], 12/18/2024 12:40:38 12/19/19 25 12/18/2024 COMP. METAB OLIC PANEL (14) glucose 110 mg/dL 70-99 above high normal Not Available [facility] ([facility]) [address] [facility], [place], [address], 12/18/2024 12:40:39 12/19/19 25 12/18/2024 COMP. METAB OLIC PANEL (14) BUN 9 mg/dL 8-27 normal Not Available [facility] ([facility]) [address] [facility], [place], [address], 12/18/2024 12:40:39 12/19/19 25 12/18/2024 COMP. METAB OLIC PANEL (14) creatinine 0.66 mg/dL 0.57-1 .00 normal Not Available [facility] ([facility]) [address] [facility], [place], [address], 12/18/2024 12:40:39 12/19/19 25 12/18/2024 COMP. METAB OLIC PANEL (14) eGFR 94 mL/mi n/1.7 3 >59 normal Not Available [facility] ([facility]) [address] [facility] [place], [address], 12/18/2024 12:40:39 12/19/19 25 12/18/2024 COMP. METAB OLIC PANEL (14) BUN/creatini ne ratio 14 12-28 normal Not Available [facility] ([facility]) [address] [facility] [place], [address], 12/18/2024 12:40:39 12/19/19 25 12/18/2024 COMP. METAB OLIC PANEL (14) sodium 143 mmol/ L 134-14 4 normal Not Available [facility] ([facility]) [address] [facility], [place], [address], 12/18/2024 12:40:39 12/19/19 25 12/18/2024 COMP. METAB OLIC PANEL (14) potassium 3.8 mmol/ L 3.5-5. 2 normal Not Available [facility] ([facility]) [address] [facility] [place], [address], 12/18/2024 12:40:39 12/19/19 25 12/18/2024 COMP. METAB OLIC PANEL (14) chloride 98 mmol/ L 96-106 normal Not Available [facility] ([facility]) [address] [facility] [place], [address], 12/18/2024 12:40:39 12/19/19 25 12/18/2024 COMP. METAB OLIC PANEL (14) carbon dioxide, total 28 mmol/ L 20-29 normal Not Available [facility] ([facility]) [address] [facility] [place], [address], 12/18/2024 12:40:39 12/19/19 25 12/18/2024 COMP. METAB OLIC PANEL (14) calcium 7.9 mg/dL 8.7-10 .3 below low normal Not Available [facility] ([facility]) [address] [place], [address], 12/18/2024 12:40:39 12/19/19 25 12/18/2024 COMP. METAB OLIC PANEL (14) protein, total 7.2 g/dL 6.0-8. 5 normal Not Available [facility] ([facility]) [address] [place], [address], 12/18/2024 12:40:39 12/19/19 25 12/18/2024 COMP. METAB OLIC PANEL (14) albumin 4.3 g/dL 3.9-4. 9 normal Not Available [facility] ([facility]) [address] [facility], [address], 12/18/2024 12:40:39 12/19/19 25 12/18/2024 COMP. METAB OLIC PANEL (14) globulin, total 2.9 g/dL 1.5-4. 5 Not Available [facility] ([facility]) [address] [place], [address], 12/18/2024 12:40:39 12/19/19 25 12/18/2024 COMP. METAB OLIC PANEL (14) bilirubin, total 0.5 mg/dL 0.0-1. 2 normal Not Available [facility] ([facility]) [address] [facility] [place], [address], 12/18/2024 12:40:39 12/19/19 25 12/18/2024 COMP. METAB OLIC PANEL (14) alkaline phosphatase 59 IU/L 44-121 normal Not Available [facility]) [address] [facility], [address], 12/18/2024 12:40:39 12/19/19 25 12/18/2024 COMP. METAB OLIC PANEL (14) AST (SGOT) 19 IU/L 0-40 normal Not Available [facility] ([facility]) [address] [facility], [place], [address], 12/18/2024 12:40:39 12/19/19 25 12/18/2024 COMP. METAB OLIC PANEL (14) ALT (SGPT) 11 IU/L 0-32 normal Not Available [facility] ([facility]) [address] [facility], [place], [address], 12/18/2024 12:40:39 12/19/19 25 12/18/2024 VITAM IN B12 AND FOLAT E vitamin B12 460 pg/mL 232-12 45 normal Not Available [facility] ([facility]) [address] [facility], [place], [address], 12/18/2024 12:40:40 12/19/19 25 12/18/2024 VITAM IN B12 AND FOLAT E folate (folic acid), serum 19.7 NG/mL >3.0 normal A serum folat e esteban ntrat ion of less than 3.1 ng/mL is consi dered to repre sent clini paola defic iency . Not Available [facility] ([facility]) [address] [facility], [place], [address], 12/18/2024 12:40:40 12/19/19 25 12/18/2024 VITAM IN [...] Chastity noonan [place]: The [facility]io [facility] Press . 2. Kim TOMLIN, James de leon [place], Willie off-F suresh i OLIVEROS, et al. Evalu ation , treat ment, and preve ntion of vitam in D defic iency : an Endoc rine Socie ty clini paola pract ice guide line. JCEM. 2010; 96(7) :1911 -30. Not Available [facility] ([facility]) [address] [facility], [place], [address], 12/18/2024 12:40:40 12/19/19 25 12/18/2024 PLECURTIS E NOTE please note Commen t The date and/o r time of colle ction was not indic ated on the requi sitio n as requi red by state and timo al law. The date of recei pt of the speci men was used as the colle ction date if not suppl ied. Not Available [facility] ([facility]) [address] [facility], [place], [address], 12/18/2024 12:40:41 10/26/19 18 10/26/2017 XR, chest , 2 view No observ ation record ed. [facility] [address] [place], [address], 10/26/2017 11:05:26 11/11/19 18 10/26/2017 elect shirley decker am No observ ation record ed. [facility] [address] [place], [address], 11/10/2017 13:19:46 Result Notes None recorded. Problems Name Problem SNOMED Code Status Onset Date Resolution Date Notes Provider Name and Address Organization Details Recorded Time Nicotine dependence 92977827 Active 2017 Gabriella Carlalamar arceo, [place] - [facility] 8 09:49:47 Intermitten t tremor 10761483 Active 2024 Helena Oglesby, DUPLICATOR PUNCH SET UP OPERATOR [address], [place], [address], [facility] - [facility] 5 16:55:00 Fatigue 37015006 Active 2024 Helena Oglesby, DUPLICATOR PUNCH SET UP OPERATOR [address], [place], [address], [place] - [facility] 5 16:55:02 Diarrhea 69266782 Active 2024 Helena Oglesby, DUPLICATOR PUNCH SET UP OPERATOR [address], [place], [address], [place] - [facility] 5 16:55:05 Hypocalcemi a 3401372 Active 2024 Helena Oglesby, DUPLICATOR PUNCH SET UP OPERATOR [address], [place], [address], [place] - [facility] 5 13:10:41 Renewal of prescriptio n Completed 201610/26/2017 Emmie Lorenzo in null, [place] - [facility] 8 10:51:38 Well controlled type 2 diabetes mellitus 634675860 Active 2016 Crystal Carla [place], [place] - [facility] 8 09:49:47 Mixed hyperlipide kaylee 820743706 Active 2016 Crystal Carla [place] - [facility] 8 09:49:47 Acquired hypothyroid ism 238411406 Active 2016 Crystal Carla [place] - [facility] 8 09:49:47 Coronary arterioscle rosis 17483385 Active 2016 Crystal Carla [place] - [facility] 8 09:49:47 Pain of multiple joints 36270043 Active 2016 Crystal Carla [place] - [facility] 8 09:49:47 Chronic back pain 446658219 Active 2016 Crystal Carla [place] - [facility] 8 09:49:47 Mild major depression 72555033 Active 2016 Crystal Carla [place] - [facility] 8 09:49:47 Essential hypertensio n 76058946 Active 2016 Crystal [place]la [place] - [facility] 8 09:49:47 Chronic obstructive pulmonary disease 65251746 Active 2016 Crystal Carla [place] - [facility] 8 09:49:47 Obstructive sleep apnea syndrome 61428280 Active 2016 SHRUTI Wolff 8 09:49:47 Notes:Some problems listed i n Document: #[id number] could not be added to this patient's chart. Please review this document and add these problems to the patient's chart manually as needed. Problem Notes Documentation Provider Name and Address Organization Details Recorded Time Check Totaler Consult Note : [place] [address] PATIENT NAME: ROSY GREER UNIT NO.: [id number] ATTENDING DOC: Stiven FRANKEL, Jose Luis Kang ROOM NO.: ADMISSION DATE: [facility]: [facility] BIRTHDATE: [birth year] ACCT NUM: [id number] CONSULTATION REPORT DATE OF CONSULTATION: 12/20/2017 CONSULTING [...] well healed. DICTATED BY: MD LUCERO Billings/MODL /[id number] at 1624 Signature on File 12/26/17 1624 , Jose Luis Saleem MD. DATE TIME DICT D 1510 TRANS D 5437 BY: NNEKA CC'ed Logic: CC Provider: PHYSICIAN [...] Completi on: 08/22/20 09;Indic ation: Pain - ([phone]) Not Available Not Available Not Available Vicodin ES 7.5 mg-750 mg tablet bid prn 03/29 completed Vicodin ES 7.5-750 mg oral tablet;R ecorded Status: Recorded on: 12/06/19 12 2:49PM;D iscontin ued Status: Disconti nued on: 03/29/20 12 11:33AM; User: neuss;Es t. Completi on: 02/04/20 12;Indic ation: Pain - (16.7806 00) Not Available Not Available Not Available [...] Updated DateTime 8 156.21 cm 31.4 kg/m2 77400.1 1 g 90 /min 96 % 96 % 18 /min 122/80 mm[Hg] Gabriella Aguirre [place] - [facility] 8 09:42:04 Date Recorded Body weight Heart rate Oxygen saturation Oxygen saturation in Arterial blood by Pulse oximetry Respiratory rate Systolic And Diastolic Provider Name and Address Organization Details Last Updated DateTime 3 76574.6 3 g 89 /min 96 % 96 % 20 /min 130/80 mm[Hg] Gabriella Mac [place] - [facility] 3 13:37:19 Date Recorded Body height Body mass index (BMI) Body weight Body temperature Heart rate Oxygen saturation Oxygen saturation in Arterial blood by Pulse oximetry Respiratory rate Systolic And Diastolic Provider Name and Address Organization Details Last Updated DateTime 5 154.94 cm 25.5 kg/m2 06865.9 7 g 98.5 [degF] 78 /min 93 % 93 % 18 /min 132/82 mm[Hg] Radha Glynn [place] - [facility] 5 16:07:27 Date Recorded Body weight Body mass index (BMI) Body height Oxygen saturation Oxygen saturation in Arterial blood by Pulse oximetry Heart rate Respiratory rate Body temperature Systolic And Diastolic Provider Name and Address Organization Details Last Updated DateTime 3 07926.6 7 g 28 kg/m2 154.94 cm 91 [...] Updated DateTime 3 154.94 cm 29.5 kg/m2 88180.4 1 g 98.6 [degF] 94 /min 90 [...] Or The Highest Degree You Have Received? CF63779-3 Information not available 01/17/2023 Hard Of Hearing Or Deaf In One Or Both Ears? No [email or web address] Information not available 12/03/2016 Legally Blind In One Or Both Eyes? No Information no t available 12/03/2016 Live Alone Or With Others? Alone [email or web address] Information not available 04/26/2017 What Was The Date Of Your Most Recent Tobacco Screening? 12/17/2024 Information not available 12/17/2024 What Is Your Current Pack Years? [email or web address] years Information not available 01/17/2023 What Is Your Relationship Status? [email or web address] Information not available 12/03/2016 Seat Belts Used Routinely Yes [email or web address] Information not available 12/03/2016 Are You Sexually Active? No Information not available 01/17/2023 Smoke Alarm In Home Yes Information not available 12/03/2016 At What Age Did You Start Smoking Tobacco? 17 Information not available 01/17/2023 How Much Tobacco Do You Smoke? 1 PPD [email or web address] Information not available 06/14/2016 Has Tobacco Cessation [...] available 01/17/2023 Are you currently employed? Yes [email or web address] Information not available 12/03/2016 Do you have transportation difficulties? No Information not available 01/17/2023 Are you able to walk? [email or web address] Information not available 01/17/2023 Do you have difficulty doing errands alone? No Information not available 01/17/2023 Are you able to care for yourself? 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 No Information not available 01/17/2023 What is your exercise level? Occasional Information not available 12/03/2016 Mental Status Question Answer Note LastModified by Organization D etails LastModified Time Do you have difficulty concentrating, remembering or making decisions? No Information no t available 01/17/2023 Family History Relationship Description Onset Age of this Age Resolved Age Notes LastModified by Organization Details LastModified Time Mother Arthritis Not availabl e 06/14/2016 09:21:05 Mother Pulmonary [email or web address] Not available 2015 09:21:32 Mother Heart disease [email or web address] Not available 2015 09:21:45 Father Diabetes mellitus [email or web address] Not available 2015 09:21:18 Sister Hypothyroidi sm Not available 2015 09:22:03 Sister Diabetes mellitus [email or web address] Not available 2016 16:34:37 Unspecified Relation Malignant neoplasm of lung [email or web address] Not available 2016 16:35:26 Unspecified Relation Sleep apnea [email or web address] Not available 02/2017 16:35:50 Unspecified Relation Fibromyalgia [email or web address] Not available 16:36:08 Medical History Condition Response Hyperthyroidism Y COPD Y Hypothyroidism Y Diabetes Y Hyperlipidemia Y Hypertension Y Gynecological History Statement/Question Response Menses Monthly N If Post Menopausal, Age at Menopause 50 Current Control Method Menopause Most Recent Mammogram Obstetrics History GPAL:G 0 P 0 0 0 0 Immunizations Vaccine Type Date Status Note Provider Nam e and Address Organization Details Recorded Time Influenza, high-dose, trivalent, PF 4 completed Not Available [facility] 12/17/2024 16:00:24 influenza, unspecified formulation 2 completed Mary Figgins null, [place] - [facility] 07/18/2023 15:11:01 influenza, unspecified formulation 3 completed Mary Figgins [place], [place] - [facility] 07/18/2023 15:11:01 influenza, unspecified formulation 4 completed Mary Figgins [place], [place] - [facility] 07/18/2023 15:11:01 influenza, unspecified formulation 5 completed Mary Figgins [place], [place] [facility] 07/18/2023 15:11:01 Influenza, split virus, quadrivalent, preservative 7 completed Not Available [facility] 09/15/2019 03:54:46 pneumococcal polysaccharide PPV23 4 completed Mary Figgins null, [place] - [facility] 07/18/2023 15:11:01 Influenza, split virus, quadrivalent, PF 6 completed Not Available [facility] 09/15/2019 03:54:16 pneumococcal polysaccharide PPV23 0 completed Mary Figgins null, [place] - [facility] 07/18/2023 15:11:01 Tdap 0 completed Mary Figgins null, [place] - [facility] 07/18/2023 15:11:01 Influenza, high-dose, trivalent, PF 0 completed Mary Figgins [place], [place] - [facility] 07/18/2023 15:11:01 Influenza, split virus, trivalent, PF 3 completed Mary Figgins null, [facility] 07/18/2023 15:11:01 Influenza, split virus, trivalent, PF 2 completed Mary Figgins null, [facility] 07/18/2023 15:11:01 Influenza, split virus, quadrivalent, PF 8 completed Mary Figgins null, [facility] 07/18/2023 15:11:01 Influenza, split virus, quadrivalent, PF 6 completed Mary Figgins null, [facility] 07/18/2023 15:11:01 Influenza, split virus, quadrivalent, PF 5 completed Mary Figgins null, [facility] 07/18/2023 15:11:01 Influenza, high-dose, quadrivalent, PF 1 completed Mary Figgins null, [facility] 07/18/2023 15:11:00 Influenza, high-dose, quadrivalent, PF 2 completed Mary Figgins null, [facility] 07/18/2023 15:11:01 Pneumococcal conjugate PCV20, polysaccharide [id number] conjugate, adjuvant, PF 2 completed Mary Figgins null, [facility] 07/18/2023 15:11:01 Past Encounters Encounter ID Performer Location Encounter Start Date Encounter Closed Date Diagnosis/Indication Diagnosis SNOMED-CT Code Diagnosis ICD10 Code Diagnosis Note [id number] [facility] [address] [place] [address] 01/07/2012 00:00:00 [id number] [facility] [address] [place] [address] 03/29/2012 00:00:00 [id number] [facility] [address] [place] [address] 05/10/2012 00:00:00 [id number] [facility] [address] [place] [address] 07/03/2012 00:00:00 [id number] [facility] [address] [place] [address] 10/10/2012 00:00:00 [id number] [facility] [address] [place] [address] 02/27/2013 00:00:00 [id number] [facility] [address] [place] [address] 01/07/2012 00:00:00 [id number] [facility] [address] [place] [address] 12/20/2013 00:00:00 [id number] [facility] [address] [place] [address] 01/23/2014 00:00:00 [id number] [facility] [address] [place] [address] 07/22/2014 00:00:00 [id number] [facility] [address] [place] [address] 11/25/2014 00:00:00 [id number] [facility] [address] [place] [address] 02/27/2013 00:00:00 [id number] [facility] [address] [place] [address] 04/16/2013 00:00:00 [id number] [facility] [address] [place] [address] 12/09/2014 00:00:00 [id number] [facility] [address] [place] [address] 06/04/2013 00:00:00 [id number] [facility] [address] [place] [address] 05/06/2015 00:00:00 [id number] [facility] [address] [place] [address] 08/06/2013 00:00:00 [id number] [facility] [address] [place] [address] 09/25/2013 00:00:00 [id number] [facility] [address] [place] [address] 10/22/2013 00:00:00 [id number] [facility] [address] [place] [address] [address] 05/06/2015 00:00:00 [id number] [facility] [address] [place] [address] [address] 06/23/2015 00:00:00 [id number] [facility] [address] [place] [address] 07/28/2015 00:00:00 [id number] [facility] [address] [place] [address] 10/06/2015 00:00:00 [id number] [facility] [address] [place] [address] 04/20/2016 00:00:00 [id number] [facility] [address] [place] [address] 07/15/2010 00:00:00 [id number] [facility] [address] [place] [address] 10/02/2010 00:00:00 [id number] [facility] [address] [place] [address] 12/21/2010 00:00:00 [id number] [facility] [address] [place] [address] 03/08/2011 00:00:00 [id number] [facility] [address] [place] [address] 10/11/2011 00:00:00 [id number] [facility] [address] [place] [address] 12/06/2011 00:00:00 [id number] [facility] [address] [place] [address] 01/04/2012 00:00:00 [id number] [facility] [address] [place] [address] 11/15/2005 00:00:00 [id number] [facility] [address] [place] [address] 11/15/2008 00:00:00 [id number] [facility] [address] [place] [address] 05/16/2009 00:00:00 [id number] [facility] [address] [place] [address] 06/23/2009 00:00:00 [id number] [facility] [address] [place] [address] 08/25/2009 00:00:00 [id number] [facility] [address] [place] [address] 10/29/2009 00:00:00 [id number] [facility] [address] [place] [address] 12/18/2009 00:00:00 [id number] [facility] [address] [place] [address] 03/13/2010 00:00:00 [id number] [facility] [address] [place] [address] 04/06/2010 00:00:00 [id number] [facility] [address] [place] [address] 07/15/2010 00:00:00 [id number] Todd Kiran [facility] [address] [place] [address]- [address] [place] [address] 06/14/2016 09:05:11 06/14/2016 10:41:34 Type 2 diabetes mellitus without complication 742789316 E11.9 Acquired hypothyroidism 422476485 E03.9 Discharge from nipple 54 339622 N64.52 Administra tion of influenza vaccine 76620888 Z23 Hyperlipidemia 03112059 E78.5 [id number] Bernice Hay [address] [place] [address] 09/09/2016 16:26:27 09/09/2016 16:53:27 Spasmodic cough 27141446 R05 Bronchitis 42853645 J40 Upper resp iratory infection 67957113 J06.9 [id number] Todd Kiran MD [address] [place] [address] 12/20/2016 09:32:48 12/20/2016 10:56:30 Cough 12379971 R05 Acquired hypothyroidism 882030218 E03.9 Chronic ob structive pulmonary disease 36811369 J44.9 Well contr olled type 2 diabetes mellitus 497264273 E11.9 Screening for malignant neoplasm of colon 403141354 Z12.11 Mammography abnormal 168 884364 R92.8 Nicotine dependence 5629 4008 F17.200 Essential hypertension 09179532 I10 Pain of mu ltiple joints 36449701 M25.50 Obstructiv e sleep apnea syndrome 85031631 G47.33 Mixed hyperlipidemia 267 956512 E78.2 [id number] Bernice Hay [address] [place] [address] 04/26/2017 16:23:12 04/26/2017 16:56:41 Body mass index 30+ - obesity 154667144 Z68.32 Bronchitis 66784579 J40 [id number] Bernice Hay [address] [place] [address] 04/28/2017 12:43:00 04/28/2017 13:19:33 Lower respiratory tract infection 79088157 J22 [id number] Todd Kiran MD [address] [place] [address] 07/11/2017 10:19:53 07/11/2017 13:00:20 Obstructive sleep apnea syndrome 69028490 G47.33 Acquired hypothyroidism 377710146 E03.9 Administra tion of influenza vaccine 35684454 Z23 Well contr olled type 2 diabetes mellitus 874940457 E11.9 Chronic ob structive pulmonary disease 54595013 J44.9 Mixed hyperlipidemia 267 643494 E78.2 [id number] Todd Kiran MD [address] [place] [address] 10/26/2017 08:51:39 10/26/2017 11:07:58 Body mass index 30+ - obesity 869998969 Z68.31 Chest discomfort 3077348 09 R07.89 Bronchitis 66412952 J40 Well contr olled type 2 diabetes mellitus 664381127 E11.9 Chronic ob structive pulmonary disease 67265902 J44.9 Nicotine dependence 5629 4008 F17.012 [id number] Bernice Hay [address] [place] [address] 12/06/2022 13:26:08 12/06/2022 14:10:35 Respiratory tract congestion 293890003 R09.89 Well contr olled type 2 diabetes mellitus 172338739 E11.9 Chronic ob structive pulmonary disease 54295068 J44.9 Essential hypertension 25551532 I10 controlled at 130/80 [id number] Lorenzo Thayer MD [address] [place] [address] 01/17/2023 09:03:06 01/17/2023 10:44:19 Body mass index 25-29 - overweight 537300200 Z68.28 Overweight 345380732 E66 .3 Fever 142334583 R50.9 Nasal congestion 2665578 0 R09.81 [id number] Lorenzo Thayer MD [address] [address] 07/18/2023 14:35:44 07/18/2023 15:43:18 Upper respiratory infection 92233230 J06.9 [id number] Helena Oglesby [address] [place] [address] 12/17/2024 15:52:23 12/17/2024 17:02:33 Overweight 482742613 E66.3 Overweight in adulthood with body mass index of 25 or more but less than 30 523360075 Z68.25 Intermittent tremor 3663 7003 R25.1 Diarrhea 38589912 R19.7 Advised to increase water and fiber intake. Fatigue 30651251 R53.83 Health Concerns Section Related Observation LastModified by Organization Detai ls LastModified Time None Recorded Concern Status LastModified by Organization Details LastModified Time None Recorded Advance Directives Directive None Recorded Payers Insurance Date Sequence Insurance Name Policy Number Policy Joy Covered Member ID Joy Member ID Guarantor Name 12/17/2024 1 [employer] (MEDICARE REPLACEMENT/AD VANTAGE - PPO) Rosy Greer [id number] Rosy Greer 12/17/2024 1 [employer] (MEDICARE REPLACEMENT/AD VANTAGE - PPO) Rosy Greer [id number] Rosy Greer 02/06/2025 1 [place]MO[place] [id number] Rosy Greer [id number] Rosy Greer 12/17/2024 [place] SHRUTI Greer [id number] Rosy Greer 12/17/2024 [place] SHAUN Greer [id number] Rosy Greer 12/17/2024 1 [employer] [place] [employer] [place] (MED[place] - [place]MO[place] SHAUN Greer [id number] Rosy Greer 12/17/2024 [place] SHAUN Greer [id number] Rosy Greer 11/12/2016 1 UNSPECIFIED REMIT PAYOR Rosy Greer Notes Date Note Type Note Provider Name and Address Organization Details Recorded Time 10/26/2017 text/html Chest discomfort left side. Started about 3 weeks. Has had bronchitis recenlty. SHRUTI Price - [facility] 10/26/2017 14:19:02 12/06/2022 text/html pt c/o cough, congestion denies any fever Bernice [place] null, [place] - [facility] 12/06/2022 14:08:37 01/17/2023 [...] returned. Lorenzo Thayer MD [address], [place], [address], [place] [facility] 01/17/2023 12:18:42 07/18/2023 text/html Pt presents for 3-5 days of worsening cough (mostly dry, occasionally productive of white thick sputum, no hemoptysis), associated congestion and sore throat. Pt endorses subjective fevers and chills, intermittent wheezing and SoB but denies arthralgias, diarrhea, rashes, lymphadenopathy. Pt is a smoker. Endorses multiple sick contacts. Lorenzo Thayer MD [address], [place], [address], [place] [facility] 07/18/2023 15:41:01 12/17/2024 text/html [...] pain, vomiting, edema, and hematochezia. Helena Oglesby, DUPLICATOR [employer] SET UP OPERATOR [address], [place], [address], [place] [facility] 12/17/2024 17:35:55 OBGyn Episode No OBEpisode recorded.
--- NOTE | 2025-03-11 10:00 | CT_ITS ---
FINAL REPORT CLINICAL HISTORY: lung cancer screening, current smoker, 1ppd for 30 years COMPARISON: 10/04/2022 CT chest FINDINGS: CT CHEST LOW DOSE SCREENING HISTORY: Screening exam for lung cancer. 69-year-old female, current smoker, 27-ijop-errg history. DOSE: CTDI vol: 2.90 mGy, DLP: 102.12 mGy*cm TECHNIQUE: Axial CT without IV contrast administration using low dose protocol. This study was performed with techniques to keep radiation doses as low as reasonably achievable, (ALARA). Individualized dose reduction techniques using automated exposure control or adjustment of mA and/or kV according to the patient's size were employed. No acute lung disease is present. No pulmonary lesions are seen suspicious for neoplasm. No pleural or pericardial effusion is seen. No adenopathy or mass lesion is present. IMPRESSION: No evidence of lung cancer LUNG RADS CATEGORY 1 RECOMMENDATION: 12 month LDCT follow up Reviewed, Interpreted and Dictated by Demetris Hauser MD Transcribed by Shaneka Frederick Authenticated and [facility]
== END 2025-03-11 23:59 | disposition home or self-care (01) ==
LOC: RAD 09:42
PROVIDERS: PCP Family Medicine; Visit Provider Family Medicine
DX: Z12.2 Encounter for screening for malignant neoplasm of respiratory organs (principal); Z87.891 Personal history of nicotine dependence
CPT/HCPCS: 71271